=== PATIENT | male | born 1995 | race Caucasian/White ===

== ENCOUNTER → 2018-01-25 14:57 | Outpatient (CLI) | payer MEDICAID, SELFPAY ==
--- NOTE | 2018-01-25 14:57 | DT_ITS ---
This patient was seen during an EMR downtime January 25, 2018 - February 01, 2018. This patient may have a combination of paper and electronic documentation or all paper documentation. All documentation is viewable within the e-chart portion of [employer] for each patient visit.
[2018-01-29 21:37] LABS: Hematocrit 46.4 % (40-54); Hemoglobin 15.4 g/dl (13.0-16.5); Mean Corp Hgb Conc 33.2 g/gl (32-36); Mean Corpuscular Hgb 30.5 pg (27.0-32.0); Mean Corpuscular Volume 91.9 fL (80-94); Platelet Count 249 K/mm3 (150-450); RBC Distribution Width CV 12.5 % (11.6-14.6); RBC Distribution Width SD 41.6 fl (35.1-43.9); Red Blood Count 5.05 M/mm3 (4.6-6.2); White Blood Count 8.5 K/mm3 (4.4-11.0)
[2018-01-29 21:38] LABS: BUN 16 mg/dL (7-18); BUN/Creat Ratio 14.8 RATIO (10-20); Creatinine, Serum 1.08 mg/dL (0.70-1.30); EST Glomerular Filtration Rate 91 mL/min (>60); Est Glom Filt Rate - Afr Amer 110 mL/min (>60); Glucose 79 mg/dL (74-106); Scan Indicated on CBC? Y/N NO
[2018-01-29 21:39] LABS: AST(SGOT) 17 U/L (15-37); Alanine Aminotransfer ALT/SGPT 32 U/L (16-61); Albumin, Serum 4.1 g/dL (3.2-5.0); Alkaline Phosphatase 112 U/L (45-117); Calcium,Total 9.2 mg/dL (8.5-10.1); Chloride 104 mmol/L (98-107); Potassium 4.2 mmol/L (3.5-5.1); Sodium Level 141 mmol/L (136-145)
[2018-01-29 21:40] LABS: Anion Gap 9 (5-15); Thyroid Stim Hormone (TSH) 1.17 uIU/mL (0.358-3.74)
[2018-01-29 21:41] LABS: Valproic Acid (Depakene) Level 52 ug/mL (50-100)
[2018-01-29 21:42] LABS: Hemoglobin A1c 5.3 % (4.2-6.3)
[2018-01-30 10:56] LABS: Globulin 4.1 g/dL (2.2-4.2); Protein, Total 8.2 g/dL (6.4-8.2)
== END ==
PROVIDERS: Family Provider Family Medicine; PCP Family Medicine; Visit Provider Psychiatry & Neurology Psychiatry
DX: Z79.899 Other long term (current) drug therapy (principal)
CPT/HCPCS: 36415; 80053; 80164; 83036; 84443; 85027

== ENCOUNTER 2025-06-10 02:34 | Emergency (ER) | payer MEDICARE, MEDICAID, SELFPAY ==
[2025-06-10 02:35] VITALS: BP 156/81; PULSE 92; RESP 18; TEMP 36.4; O2SAT 100; BMI 35.0
--- NOTE | 2025-06-10 03:01 | EX.ED.UPPERE ---
HPI History of Present Illness Chief Complaint: Upper Extremity Injury Informant: patient Narrative Narrative: Patient is a 29-year-old male with past medical history of ADHD and schizophrenia. He states he was sleeping when he awoke and noticed that his left arm felt numb and tingly. He states that he is unsure if he could have been bitten by something or have an allergic reaction to the neighbors dog. He states there has been no recent trauma or excessive activity. He states that upon arrival to the ER the symptoms have spontaneously improved. He denied any other symptoms such as paresthesias or weakness in other extremities change in vision headache or slurred speech [facility] Medical History Tinea pedis Home Medications ?Medication ?Instructions ?Recorded ?Last Taken ?Type clonidine HCl 0.1 mg 0.1 mg PO QHS 05/29/25 Unknown History tablet,extended release,12 hr clotrimazole-betamethasone 1 1 applic topical BID 4 weeks #45 05/29/25 Unknown Rx %-0.05 % topical cream grams fluoxetine 10 mg capsule 10 mg PO QDAY 05/29/25 Unknown History lisdexamfetamine 50 mg capsule 50 mg PO QDAY 05/29/25 Unknown History loratadine 10 mg tablet 10 mg PO QDAY 05/29/25 Unknown History paliperidone 3 mg tablet,extended 3 mg PO QHS 05/29/25 Unknown History release 24 hr quetiapine 400 mg tablet 400 mg PO QHS 05/29/25 Unknown History Allergy/AdvReac Type Severity Reaction Status Date / Time Penicillins (PCN) Allergy Hives Verified 06/10/25 02:35 Social History (Updated 05/29/25 @ 16:16 by Vicki Adams MA) Smoking Status: Never smoker alcohol intake: never ROS ROS ED Constitutional Constitutional ED: Denies chills or fever(s) Eyes Eyes: Denies blurry vision or change in vision ENT ENT ED: Denies sore throat Cardiovascular Cardiovascular: Denies chest pain, palpitations or racing heartbeat Respiratory/Chest Respiratory/Chest: Denies cough or dyspnea Gastrointestinal Gastrointestinal: Denies abdominal pain, diarrhea, nausea or vomiting Musculoskeletal Musculoskeletal: Denies neck pain Integumentary Denies rash Neurologic Neurologic: Reports paresthesias; Denies headache(s) EXAM Physical Exam Const Vital Signs: 06/10/25 02:35 Temperature 97.5 F L Temperature Source Oral Pulse Rate 92 Respiratory Rate 18 Blood Pressure 156/81 H Blood Pressure Mean 106 Pulse Ox 100 Oxygen Delivery Method Room Air Positive well nourished and well developed General Appearance ED: well developed HEENT HEENT Narrative: Normocephalic atraumatic Eyes PERRL and EOMs intact bilaterally Neck full ROM and supple Neck Narrative: No bony deformity or step-off of the cervical spine No midline tenderness to palpation Negative Spurling sign bilaterally Resp normal respiratory effort and clear to auscultation bilaterally Cardio regular rate and regular rhythm Cardio Narrative: Heart is regular rate and rhythm without murmurs rubs or gallops Radial and carotid pulses are equal and symmetric GI non-tender, non-distended and no masses Auscultation: normoactive bowel sounds Palpation: soft Extremity normal to inspection and full ROM Extremity Narrative: Left upper extremity is neurovascularly intact; AIN/PIN are intact and normal. Negative Tinel's and Phalen sign. No bony deformity or joint effusion noted. All compartments are soft and compressible going against compartment syndrome. No signs of allergic reaction or trauma as there is no ecchymosis erythema or urticarial lesions noted Remainder of the exam is normal Neuro oriented x3, CN's II-XII intact bilaterally, moves all extremities, no focal motor deficits and no sensory deficits noted Sensorium / Orientation: alert Motor Exam: strength 5/5 throughout Psych mental status grossly normal Skin no rashes or lesions noted Skin Narrative: Capillary refill is less than 3 seconds [facility] MDM MDM Narrative Medical decision making narrative: Patient arrived to the ER mildly hypertensive but overall stable vitals. He reported he awoke with left hand/arm numbness tingling and folic it was slightly swollen. His physical exam does not suggest acute allergic reaction as there is no urticaria or erythema there is no sign of insect bite or sting. He does not show findings for arterial occlusion as the distal radial pulse is bounding and plus 2 out of 4 with capillary refill less than 3 seconds. He does not findings to suggest symptoms for compartment syndrome or from carpal tunnel/cubital tunnel. With negative Spurling sign he does not show changes concerning for cervical radiculopathy. His neurologic exam is normal as well going against any type of atypical TIA or CVA. I do feel the patient was most likely sleeping in an abnormal position which led to compression/neuropraxia. This would account for his symptoms as well as the spontaneous resolution upon arrival. Therefore without signs of neurologic issue compartment syndrome injury infection or allergic reaction I do not feel there is need for any type of intervention such as imaging or labs and he is otherwise safe for discharge History & Record Review Discussion w/independent historian: Patient Discharge Plan Triage Chief Complaint: Upper Extremity Injury ED Provider: Igor Gonsalez Dx/Rx/DC Orders Clinical Impression: Paresthesia, Neuropraxia of upper extremity, ADHD, Schizophrenia Instructions: ED Paresthesia Prescriptions: No Action fluoxetine 10 mg capsule 10 mg PO QDAY loratadine 10 mg tablet 10 mg PO QDAY quetiapine 400 mg tablet 400 mg PO QHS paliperidone 3 mg tablet extended release 24hr 3 mg PO QHS lisdexamfetamine 50 mg capsule 50 mg PO QDAY clotrimazole-betamethasone 1-0.05 % cream 1 applic topical BID 28 Days Qty: 45 0RF clonidine HCl 0.1 mg tablet extended release 12 hr 0.1 mg PO QHS Primary Care Provider: Parrish Marie Referrals: Parrish Marie MD [Primary Care Provider, [facility]] Activity Restrictions/Additional Instructions: Your history and exam is consistent with neuropraxia. This is essentially compression of the nerve structure which then leads to sensation of numbness tingling weakness. This most likely happened because you were sleeping in an abnormal position. It it will resolve spontaneously once your extremity is in a normal position. However it could take anywhere from a few minutes to a few hours. If symptoms happen again please make sure your arm is in a normal resting position and allow up to 1 hour for symptoms to resolve. Return to the ER should you have any further concerns Print Language: Albanian Disposition Disposition: Home, Self Care Discharge Date/Time: 06/10/25 03:17
--- OUTSIDE RECORDS SUMMARY | 2025-06-10 03:09 | XMS RPT_ITS | CCD ---
Author Organization [facility] Care Team Providers Care Drill Instructor Name Role Phone Amena Torres MD Primary Care Provider Amena Torres MD Primary Care Provider T[place]hof CORRECTIONAL SUPPLY SUPERVISOR.Shoshana HOWELL Unavailable Tannhof CORRECTIONAL SUPPLY SUPERVISOR.Shoshana HOWELL Unavailable Monty CORRECTIONAL SUPPLY SUPERVISOR.Janette HOWELL Unavailable Abshweta CISNEROS Stephen Primary Care Provider STEPHEN JOHNS Attending Unavailable ABUAITA, STEPHEN Primary Care Unavailable [place] CORRECTIONAL SUPPLY SUPERVISOR.Shoshana HOWELL Unavailable Dr. Amena Torres MD Primary Care Physician Dr. Amena Torres MD Referring Provider Sudeep Madrigal Attending Physician Amena Torres Referring Unavailable Amena Torres Primary Care Unavailable Sudeep Madrigal Attending Unavailable Allergies Allergy Classification Reported Allergen(s) Allergy Type Date of Onset Reaction(s) Facility (3 sources) Penicillins; Translations: [PENICILLINS] Propensity to adverse reactions 6 [facility] (14 sources) Penicillins Propensity to adverse reactions 6 [facility] (2 sources) Penicillins Propensity to adverse reactions 6 [facility] (1 source) Penicillins Allergy to substance 5 [facility] (1 source) Penicillins Drug allergy (disorder) 5 [facility] Repository Medications Current Medications Medication Drug Class(es) Dates Sig (Normalized) Sig (Original) acetaminophen 325 mg oral tablet (19 sources) Start: 07-08-2022 End: 03-15-2025 take 2 tablets by mouth every six hours as needed for pain and headache acetaminophen (TYLENOL) 325 mg tablet Indications: Acute frontal sinusitis, recurrence not specified , Acute serous otitis media of left ear, recurrence not specified Take 2 tablets by mouth every 6 hours as needed for pain. and headache 60 tablet 1 03/15/2025 Active Start: 05-21-2015 End: 05-29-2025 take 500-1000 mg by mouth every six hours as needed for pain Acetaminophen 500 MG tablet Discontinued 500 - 1000 mg PO EVERY 6 HOURS NEEDED as needed for Pain Or Fever 60 May 21, 2015 12:00am May 29, 2025 4:14pm Comment on above: Take 2 tablets by mo uth every 6 hours as needed for fever (specify). Take 2 tablets by mo uth every 6 hours as needed for pain. and headache betamethasone 0.5 mg/ml / clotrimazole 10 mg/ml topical cream (1 source) Azole Antifungal, Corticosteroid Start: 05-29-20 Clotrimazole-Betam ethasone 1-0.05 % cream Active 1 NMA TOPICAL TWICE A DAY 45 28 0 May 29, 2025 12:00am June 25, 2025 12:00am Complies with drug therapy 12 hr cloNIDine hydrochloride 0.1 mg extended release oral tablet (2 sources) Central alpha-2 Adrenergic Agonist Start: 02-24-20 End: 05-29-20 take 1 tablet by mouth every twelve hours at bedtime Clonidine Hcl 0.1 mg tablet extended release 12 hr Active 0.1 mg PO AT BEDTIME May 29, 2025 4:15pm Complies with drug therapy FLUoxetine 10 mg oral capsule (20 sources) Serotonin Reuptake Inhibitor Start: 05-29-20 take 1 capsule by mouth once daily Fluoxetine 10 mg capsule Active 10 mg PO daily May 29, 2025 12:00am Complies with drug therapy Start: 12-09-2024 take 1 capsule by mo uth once daily FLUoxetine (PROZAC) 10 mg capsule Take 10 mg by mouth once daily. 12/09/2024 Active Start: 12-04-2021 End: 12-27-2024 take 1 capsule by mouth once daily FLUoxetine HCl (PROZAC) 40 mg capsule Take 1 capsule by mouth once daily. 12/04/2021 12/27/2024 Discontinued Comment on above: Take 1 capsule by mo [facility] once daily. lisdexamfetamine dimesylate 50 mg oral capsule (3 sources) Central Nervous System Stimulant Start: 025 take 1 capsule by mouth once daily Lisdexamfetamine 50 mg capsule Active 50 mg PO daily 0 May 29, 2025 12:00am Complies with drug therapy Start: 12-08-2024 take 1 capsule by mo [facility] once daily lisdexamfetamine (VYVANSE) 50 mg capsule Take 50 mg by mouth once daily. 12/08/2024 Active loratadine 10 mg oral tablet (20 sources) Start: 05-29-2025 take 1 tablet by mouth once daily Loratadine 10 mg tablet Active 10 mg PO daily May 29, 2025 12:00am Complies with drug therapy Start: 07-28-2023 End: 08-08-2024 take 1 tablet by mouth once daily loratadine (CLARITIN) 10 mg tablet Take 1 tablet by mouth once daily. 31 tablet 11 08/08/2024 Active Start: 09-03-2021 End: 09-01-2022 take 1 tablet by mouth once daily loratadine (CLARITIN) 10 mg tablet Take 1 tablet by mouth once daily. 31 tablet 11 09/01/2022 Active Comment on above: Take 1 tablet by gennaro th once daily. 24 hr paliperidone 3 mg extended release oral tablet (3 sources) Atypical Antipsychotic Start: 05-29-20 take 1 tablet by mouth every twenty-four hours at bedtime Paliperidone 3 mg tablet extended release 24hr Active 3 mg PO AT BEDTIME May 29, 2025 12:00am Complies with drug therapy Start: 12-09-2024 paliperidone E R (INVEGA) 3 mg 24 hr tablet Take 3 mg by mouth. 12/09/2024 Active QUEtiapine 400 mg oral tablet (20 sources) Atypical Antipsychotic Start: 05-29-2025 take 1 tablet by mouth at bedtime Quetiapine 400 mg tablet Active 400 mg PO AT BEDTIME May 29, 2025 12:00am Complies with drug therapy Start: 11-22-2024 take 1 tablet by gennaro th once daily at bedtime QUEtiapine (SEROQUEL) 400 mg tablet Take 400 mg by mouth daily at bedtime. 11/22/2024 Active Start: 09-27-2015 End: 12-27-2024 take 1 tablet by mouth twice daily QUEtiapine (SEROQUEL) 50 mg tablet Take 1 tablet by mouth twice daily. 0 09/27/2015 12/27/2024 Discontinued Start: 02-23-2014 End: 05-29-2025 take 1 tablet by mouth at bedtime Quetiapine (Seroquel) 200 MG tablet Discontinued 200 mg PO AT BEDTIME February 23, 2014 12:00am May 29, 2025 4:15pm End: 12-27-2024 QUEtiapine (SEROQUEL) 300 mg tablet Indications: Developmental delay Take 400 mg by mouth daily at bedtime. 12/27/2024 Discontinued take 1 tablet by gennaro th once daily at bedtime QUEtiapine (SEROQUEL) 300 mg tablet Indications: Developmental delay Take 300 mg by mouth daily at bedtime. 0 Active Comment on above: Take 1 tablet by gennaro th twice daily. Take 300 mg by mouth daily at bedtime. Take 400 mg by mouth daily at bedtime. Completed/Discontinued Medications Medication Drug Class(es) Dates Sig (Normalized) Sig (Original) acetaminophen 325 mg / oxyCODONE hydrochloride 10 mg oral tablet (1 source) Opioid Agonist Start: 02-27-2014 End: 05-29-2025 Oxycodone-Acetamin ophen (Percocet 10-325 Mg Tablet) 1 EACH tablet Discontinued 1 {tbl} PO EVERY 4 HOURS NEEDED as needed for Pain 30 0 February 27, 2014 12:00am May 29, 2025 4:15pm amphetamine aspartate 1.25 mg / amphetamine sulfate 1.25 mg / dextroamphetamine saccharate 1.25 mg / dextroamphetamine sulfate 1.25 mg oral tablet (10 sources) Central Nervous System Stimulant Start: 12-18-2022 End: 12-27-2024 take 1 tablet by mouth once daily dextroamphetamine- amphetamine (ADDERALL) 5 mg tablet Take 1 tablet by mouth once daily. 0 12/18/2022 12/27/2024 Discontinued Comment on above: Take 1 tablet by gennaro th once daily. azelastine hydrochloride 0.137 mg/actuat metered dose nasal spray (4 sources) Histamine-1 Receptor Antagonist Start: 12-18-2022 End: 05-05-2023 take 2 spray(s) nasal route twice daily azelastine 0.1% nasal spray Indications: Seasonal allergic rhinitis due to pollen Use 2 Sprays in each nostril twice daily. 30 mL 11 12/18/2022 05/05/2023 Discontinued (Course of therapy completed) Comment on above: Use 2 Sprays in each nostril twice daily. benzocaine 15 mg / menthol 2.6 mg oral lozenge (1 source) Standardized Chemical Allergen Start: 05-21-2015 End: 05-29-2025 Benzocaine-Menthol (Cepacol Sore Throat Lozenge) 1 EACH lozenge Discontinued 1 NMA MM EVERY 2 HOURS NEEDED as needed for Sore Throat 30 0 May 21, 2015 7:26pm May 29, 2025 4:14pm cyproheptadine hydrochloride 4 mg oral tablet (1 source) Start: 02-23-2014 End: 05-29-2025 take 1 tablet by mouth three times daily Cyproheptadine 4 MG tablet Discontinued 4 mg PO THREE TIMES A DAY February 23, 2014 12:00am May 29, 2025 4:15pm fluticasone propionate 0.05 mg/actuat metered dose nasal spray (12 sources) Corticosteroid Start: 12-24-2020 End: 02-10-2023 take 2 spray(s) by mouth once daily fluticasone (FLONASE) 50 mcg/actuation nasal spray INSTILL 2 SPRAYS IN EACH NOSTRIL DAILY RINSE MOUTH AFTER USE *SHAKE GENTLY BEFORE USING* 16 g 11 01/06/2023 02/10/2023 Discontinued Comment on above: INSTILL 2 SPRAYS IN EACH NOSTRIL DAILY RINSE MOUTH AFTER USE *SHAKE GENTLY BEFORE USING* hydrOXYzine hydrochloride 25 mg oral tablet (7 sources) Antihistamine Start: 05-05-2023 End: 12-27-2024 take 1 tablet by mouth every hour hydrOXYzine HCl (ATARAX) 25 mg tablet Indications: Fear of flying Take 1 tablet by mouth 1 hour prior to flight. 6 tablet 05/05/2023 12/27/2024 Discontinued Comment on above: Take [address] [facility] 1 hour prior to flight. risperiDONE 1 mg oral tablet (17 sources) Atypical Antipsychotic Start: 08-22-2016 End: 12-27-2024 take 1 tablet by mouth twice daily risperiDONE (RISPERDAL) 1 mg tablet Take 1 tablet by mouth twice daily. 0 08/22/2016 12/27/2024 Discontinued Comment on above: Take 1 tablet by gennaro twice daily. sulfamethoxazole 800 mg / trimethoprim 160 mg oral tablet (1 source) Dihydrofolate Reductase Inhibitor Antibacterial, Sulfonamide Antimicrobial Start: 02-27-2014 End: 05-29-2025 Sulfamethoxazole-T rimethoprim 1 TABLET tablet Discontinued 1 {tbl} PO TWICE A DAY 14 0 February 27, 2014 12:00am May 29, 2025 4:15pm 24 hr traZODone hydrochloride 150 mg extended release oral tablet (1 source) Serotonin Reuptake Inhibitor Start: 02-23-2014 End: 05-29-2025 take 1 tablet by mouth once daily as needed Trazodone (Oleptro Er) 150 MG tablet extended release 24 hr Discontinued 150 mg PO DAILY as needed for Insomnia February 23, 2014 12:00am May 29, 2025 4:15pm divalproex sodium 250 mg delayed release oral tablet (17 sources) Mood Stabilizer, Anti-epileptic Agent End: 12-27-2024 take 1 tablet by mouth in the morning, then take 2 tablets by mouth at bedtime divalproex DR (DEPAKOTE) 250 mg EC tablet Take by mouth. Take one tablet in am and 2 tablets at bedtime. 12/27/2024 Discontinued Comment on above: Take by mouth. Take one tablet in am and 2 tablets at bedtime. 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] 05-05-2023 Chronic Attention-deficit, conduct, and disruptive behavior disorders (20 sources) Attention deficit hyperactivity disorder; Translations: [Attention-deficit hyperactivity disorder, unspecified type] Onset: 02-15-2006 Chronic Developmental disorders (18 sources) Developmental delay; Translations: [Other disorders of psychological development] Onset: 02-15-2006 02-15-2006 Chronic Disorders of lipid metabolism (2 sources) Mixed hyperlipidemia; Translations: [Mixed hyperlipidemia] Chronic Immunizations and screening for infectious disease (4 sources) Viral screening status; Translations: [Encounter for screening for other viral diseases] Onset: 12-27-2024 12-27-2024 Episodic Malaise and fatigue (1 source) Lethargy; Translations: [Other fatigue] 08-01-2023 Episodic Mycoses (2 sources) Tinea pedis; Translations: [Tinea pedis] 05-29-2025 Episodic Other aftercare (1 source) Drug therapy status; Translations: [Other mcc (current) drug therapy] 08-01-2023 Episodic Other congenital anomalies (18 sources) Chromosomal disorder; 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, unspecified] Onset: 04-30-2010 04-30-2010 Chronic Other endocrine disorders (18 sources) Delayed puberty; 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] Onset: 05-09-2009 05-09-2009 Chronic Other endocrine disorders (18 sources) Growth hormone deficiency; Translations: [Hypopituitarism] Onset: 10-01-2012 10-01-2012 Chronic Other injuries and conditions due to external causes (1 source) Injury of finger; Translations: [Unspecified injury of unspecified wrist, hand and finger(s), initial encounter] 01-16-2015 Episodic Other screening for suspected conditions (not mental disorders or infectious disease) (8 sources) Patient encounter status; Translations: [Encounter for screening for diabetes mellitus] Onset: 12-27-2024 12-27-2024 Episodic Other upper respiratory disease (1 source) Allergic rhinitis due to pollen; Translations: [Allergic rhinitis due to pollen] 10-14-2023 Chronic Other upper respiratory infections (5 sources) Acute frontal sinusitis; Translations: [Acute frontal sinusitis, unspecified] Episodic Otitis media and related conditions (5 sources) Acute serous otitis media of left ear; Translations: [Acute serous otitis media, left ear] Episodic Screening and history of mental health and substance abuse codes (2 sources) Encounter for screening for depression; Translations: [Encounter for screening examination for other mental health and behavioral disorders] Onset: 12-27-2024 Episodic Past or Other Problems Problem Classification Problem Date Documented Date Episodic/Chronic E Codes: Natural/environment (3 sources) Insect bite - wound; Translations: [Bitten or stung by nonvenomous insect and other nonvenomous arthropods, initial encounter] Onset: 06-17-2010 Resolved: 07-09-2011 07-09-2011 Episodic Other inflammatory condition of skin (3 sources) Seborrheic dermatitis; Translations: [Other seborrheic dermatitis] Onset: 06-17-2010 Resolved: 07-09-2011 07-09-2011 Episodic Other inflammatory condition of skin (3 sources) Pruritus, unspecified; Translations: [Unspecified pruritic disorder] Onset: 06-17-2010 Resolved: 07-09-2011 07-09-2011 Episodic Other injuries and conditions due to external causes (3 sources) Excoriation of skin; Translations: [Other injury of unspecified body region, initial encounter] Onset: 06-17-2010 Resolved: 07-09-2011 07-09-2011 Episodic Other nutritional; endocrine; and metabolic disorders (20 sources) Developmental delay; Translations: [Unspecified lack of expected normal physiological development in childhood] Onset: 09-28-2015 Episodic Other nutritional; endocrine; and metabolic disorders (18 sources) General finding of height; Translations: [Short stature (child)] Onset: 05-09-2009 05-09-2009 Episodic Other skin disorders (3 sources) Folliculitis; Translations: [Follicular disorder, unspecified] Onset: 06-17-2010 Resolved: 07-09-2011 07-09-2011 Episodic Skin and subcutaneous tissue infections (3 sources) Pyoderma gangrenosum; Translations: [Pyoderma gangrenosum] Onset: 06-17-2010 Resolved: 07-09-2011 07-09-2011 Episodic Results Test Name Value Interpretation Reference Range Facility Urgent Care Visit Reporton 1 Urgent Care Visit Report [facility] [address], [address] [place] [address] OFFICE VISIT Date of Service: 05/29/25 MR#: [id number] Acct: [id number] Name: JOE AC Rep #: [id number] : 1995 Provider: ROMA Navarrete Age/Sex: 29/M Location: [facility] Status: Signed Intake Vital Signs 05/29/25 16:00 05/29/25 16:22 Height 5 ft 6 in 5 ft 8.5 in Weight: 223 lb BMI 33.4 BP 124/84 H Position Sitting Respiration 18 Pulse 84 Temp 98.7 F Temp Source Oral Pulse Oximetry (%) 97 Oxygen Delivery Method room air Intake Visit Reasons: ITCHY FEET Accompanied by: Caregiver Allergies Penicillins (PCN) Allergy (Verified 05/29/25 16:14) Hives Nurse's Note: Patient has itchy toes that started last night. Patient states that his Right foot between his 2-3 toe is red and itchy, Patient left foot between toe 3-4 is itchy and red. [facility] Medical History (Updated 05/29/25 @ 17:17 by ROMA Lerma) Tinea pedis Social History (Updated 05/29/25 @ 16:16 by Vicki Adams MA) Smoking Status: Never smoker alcohol intake: never HPI HPI Details: JOE AC, is a 29 M who presents to the office today for several day history of bilateral pruritic skin between toes with skin peeling and fissuring appreciated by patient. Unknown ideology as patient has never had such symptoms in the past he so states. No [id number] topical products been tried to assist. No other associated symptoms and no other alleviating/aggravatin g factors. ROS Const Constitutional: No other (As above) Exam Const General: cooperative, healthy appearing and no acute distress Nutritional Appearance: average body habitus Orientation: alert and awake Resp Effort Inspection: normal respiratory effort and able to speak in complete sentences Cardio Rate: regular rate Pulses: radial pulses present Skin General: no rashes or lesions noted Other: Except skin peeling and fissuring between several toes of both feet Neuro General: patient alert and patient awake Cognition: normal cognition Speech: speech normal Extrem General: normal to inspection (Except as described in skin exam above) Psych Appearance: grossly normal Mental Status: mental status grossly normal Mood: congruent mood Affect: normal affect Speech and Movement: speech and movement normal Attitude: cooperative Coding Level of Care Code Off vis,new,level 3 Diagnoses Tinea pedis B35.3 Assessment and Plan Assessment and Plan (1) Tinea pedis: Status: Acute Plan: Clotrimazole/betametha sone cream as prescribed today. Appropriate skin care measures as instructed today. Follow-up with PCP or podiatry or dermatology in 10 to 14 days should symptoms not improve, sooner should symptoms only worsen or any other concerns develop. 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 This note was generated with Vocentation software. It may contain incorrect words, spelling, and punctuation that were not noted in checking the note before signing. Medications: New clotrimazole-betametha sone 1-0.05 % 1 applic topical BID 45 grams 0RF 4 weeks Discontinued oxycodone-acetaminophe n 10-325 mg (Percocet) Discontinued Reason: Pt no longer taking 1 TAB PO Q4H PRN PRN 30 tabs 0RF Pain sulfamethoxazole-trime thoprim 800-160 mg Discontinued Reason: Pt no longer taking 1 TAB PO BID 14 TABLETS 0RF benzocaine-menthol 15-2.6 mg (Cepacol Sore Throat (benzocaine-menthol)) Discontinued Reason: Pt no longer taking 1 ea MM Q2H PRN PRN 30 matt 0RF Sore Throat acetaminophen Discontinued Reason: Pt no longer taking 500 - 1,000 mg (1 - 2 x 500 mg) PO Q6H PRN PRN 60 tabs Pain Or Fever 05/29/25 [id number] Date Sudeep Morgan Signature: Date (if applicable) CC: [facility] 05-18-2025 [facility] Telephone (4CQ) JOE AC ([id number]) 1995 M Date Time Provider Department 05/18/25 STEPHEN JOHNS 4CQ During your visit today, we recorded the following information about you: Maxine Gomes 05/18/2025 11:25 AM Signed [place] [employer] paperwork mailed to patient address. Paperwork was in accordion file. Maxine Em May 18, 2025 11:25 AM Allergies As of Date: 05/18/2025 Noted Allergy Reaction PENICILLINS 05/07/2006 4 - Hives Comments: rash Date Reviewed: 12/27/2024 Reviewed by: Toya Winston LPN - Fully Assessed Prescriptions as of 05/18/2025 - acetaminophen (TYLENOL) 325 mg tablet Take 2 tablets by mouth every 6 hours as needed for pain. and headache - lisdexamfetamine (VYVANSE) 50 mg capsule Take 50 mg by mouth once daily. - paliperidone ER (INVEGA) 3 mg 24 hr tablet Take 3 mg by mouth. - FLUoxetine (PROZAC) 10 mg capsule Take 10 mg by mouth once daily. - QUEtiapine (SEROQUEL) 400 mg tablet Take 400 mg by mouth daily at bedtime. - loratadine (CLARITIN) 10 mg tablet Take 1 tablet by mouth once daily. 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] 04/30/2010 Folliculitis [L73.9] 06/17/2010 07/09/2011 Insect bites [W57.XXXA] 06/17/2010 07/09/2011 Other seborrheic dermatitis [L21.8] 06/17/2010 07/09/2011 Pruritus [L29.9] 06/17/2010 07/09/2011 Excoriation [T14.8XXA] 06/17/2010 07/09/2011 Pyoderma gangrenosum [L88] 06/17/2010 07/09/2011 Growth hormone deficiency [E23.0] 10/01/2012 Developmental delay [R62.50] 09/28/2015 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] 09/28/2015 Encounter Status:Closed by MAXINE GOMES on 05/18/[address] [facility] CNOVon 12-27-2024 CNOV Office Visit (FAMLAK ) JOE AC ([id number]) 1995 Date Time Provider Department 12/27/24 2:40 PM STEPHEN JOHNS During your visit today, we recorded the following information about you: Temperature Pulse Respiration Blood pressure 98.4 degrees 87/minute 20/minute 130/82 Weight Height 86.3 kg 1.746 m Stephen Johns DO 12/27/2024 3:40 PM Signed ASSESSMENT AND PLAN: Problem List Items Addressed This Visit None Visit Diagnoses Encounter for well adult exam without abnormal findings - Primary Screening for depression Relevant Orders DEPRESSION SCREENING Encounter for screening examination for other mental health and behavioral disorders Relevant Orders ANXIETY SCREENING Special screening examination for viral disease Relevant Orders HEPATITIS C ANTIBODY IA WITH CONFIRMATION Encounter for immunization Relevant Orders TDAP PRINTED PHARMACY INSTRUCTIONS Screening for diabetes mellitus Relevant Orders COMPREHENSIVE METABOLIC PANEL HEMOGLOBIN A1C Screening for lipid disorders Relevant Orders LIPID PANEL, FASTING Screening for endocrine disorder Relevant Orders COMPLETE BLOOD COUNT TSH W/REFLEX FT4 Discussed BP goal <130/80. Encouraged diet rich in vegetables and 150 minutes of moderate intensity activity weekly. Encouraged regular dental visits. Encouraged regular seatbelt use. Encouraged safe sex practices. Reviewed age and season appropriate vaccines. Reviewed cancer screening recommendations. Questions and concerns addressed in office. Medications were reviewed and verified. AVS provided. 10/15/2023 12/27/2024 INTAKE PAIN ASSESSMENT Are you having pain associated with your visit today? No No If pain assessment is 0, no action needed. If pain assessment is positive, please see assessment and plain. FOLLOW UP: Return in about 1 year (around 12/27/2025) for CPE. SUBJECTIVE: Joe Ac is a 29 year old male presenting in the office today. CC: Patient presents with: Establish Care: Pt presents today to establish care. Living in long-term in [place] with 2 roommates. Moving back to [place] in [place] soon and will be living on his own. We are seeing [facility] psychiatry who is managing medications. Mom has HTN Diet: generally healthy- eats fast food on weekends. Cooks at home and has staff who helps. Needs to work on vegetables-like peas, green peas. Likes apples. Does a lot of mountain dew, pops. Exercise: sometimes goes on walks and does yard work. Dental Exam: greater than a year ago Does not want to see dentist- had bad experience Eye Exam: annually- seeing one this week Seatbelt Use: regular Cancer Screening Colon: NA. No immediate family history of colon cancer. Normal Bms. Lung: NA. Not a smoker Prostate: NA. DEXA: NA. AA: NA. Immunization Influenza: NA Pneumococcal: NA SARS-CoV 2: Declined. Risks and benefits of vaccination discussed in office. Tdap/Td: Due. Patient to seek vaccination through local pharmacy. Zoster: NA PHYSICAL EXAMINATION: BP 130/82 Pulse 87 Temp 98.4 Resp 20 Ht 5' 8.75 (1.75m) Wt 190 lb 3.2 oz (86.3kg) SpO2 95% BMI 28.30 kg/(m2). Physical Exam Vitals reviewed. Constitutional: General: He is not in acute distress. Appearance: Normal appearance. HENT: Head: Normocephalic and atraumatic. Right Ear: Tympanic membrane, ear canal and external ear normal. There is no impacted cerumen. Left Ear: Tympanic membrane, ear canal and external ear normal. There is no impacted cerumen. Mouth/Throat: Mouth: Mucous membranes are moist. Pharynx: Oropharynx is clear. No oropharyngeal exudate or posterior oropharyngeal erythema. Comments: Poor oral dentition Eyes: Pupils: Pupils are equal, round, and reactive to light. Cardiovascular: Rate and Rhythm: Normal rate and regular rhythm. Heart sounds: Normal heart sounds. No murmur heard. Pulmonary: Effort: Pulmonary effort is normal. No respiratory distress. Breath sounds: Normal breath sounds. No wheezing. Lymphadenopathy: Cervical: No cervical adenopathy. Neurological: Mental Status: He is alert and oriented to person, place, and time. Psychiatric: Mood and Affect: Mood normal. Behavior: Behavior normal. Stephen Johns DO 12/27/2024 3:30 PM Addendum Continue to take all medication as prescribed,. Keep up coming appointment with Psychiatry Continue to eat well balanced diet and stay active Due for eye and dental exam this year Get tetanus vaccine at pharmacy like [facility] Allergies As of Date: 12/27/2024 Noted Allergy Reaction PENICILLINS 05/07/2006 4 - Hives Comments: rash Date Reviewed: 12/27/2024 Reviewed by: Toya Winston LPN - Fully Assessed Reason for Visit: Establish Care [42] Cmt: Pt presents today to establish care. Primary Visit Diagnosis:Encounter for well adult exam without abn (more content not included)... Normal [facility] CNCOon 10-17-2024 CNCO Letter Text Normal [facility] Ammoniaon 10-09-2021 Ammonia (P) [Moles/Vol] 38 umol/L Normal 16-60 [facility] Comment on above: Performed By: #### N H3, CBCDIF, TSH, CMP, LIPB, VPA #### [facility] [address] [place], [place] [address] CBC and Differentialon 10-09 Abs Baso 0.04 k/uL Normal <0.11 [facility] Comment on above: Performed By: #### N H3, CBCDIF, TSH, CMP, LIPB, VPA #### [facility] [address] [place], [place] [address] Abs [place] 0.52 k/uL Normal <0.87 [facility] Comment on above: Performed By: #### N H3, CBCDIF, TSH, CMP, LIPB, VPA #### [facility] [address] [place], [place] [address] Abs Neut 3.67 k/uL Normal 1.45-7.50 [facility] Comment on above: Performed By: #### N H3, CBCDIF, TSH, CMP, LIPB, VPA #### [facility] [address] [place], [place] [address] Absolute nRBC <0.01 Normal <0.01 [facility] Comment on above: Performed By: #### N H3, CBCDIF, TSH, CMP, LIPB, VPA #### [facility] [address] [place] [phone] Basophils/100 WBC (Bld) 0.6 % Normal [facility] Comment on above: Performed By: #### N H3, CBCDIF, TSH, CMP, LIPB, VPA #### [facility] [address] [place] [phone] DTYPE ADIFF Normal [facility] Comment on above: Performed By: #### N H3, CBCDIF, TSH, CMP, LIPB, VPA #### [facility] [address] [place], [place] [address] Eosinophils (Bld) [#/Vol] 0.13 10*3/uL Normal <0.46 [facility] Comment on above: Performed By: #### N H3, CBCDIF, TSH, CMP, LIPB, VPA #### [facility] [address] [place] [phone] Eosinophils/100 WBC (Bld) 2.0 % Normal [facility] Comment on above: Performed By: #### N H3, CBCDIF, TSH, CMP, LIPB, VPA #### [facility] [address] [place], [place] [phone] Erythrocyte distribution width (RBC) [Ratio] 12.7 % Normal 11.5-15.0 [facility] Comment on above: Performed By: #### N H3, CBCDIF, TSH, CMP, LIPB, VPA #### [facility] [address] [place] [phone] Hematocrit (Bld) [Volume fraction] 47.2 % Normal 39.0-51.0 [facility] Comment on above: Performed By: #### N H3, CBCDIF, TSH, CMP, LIPB, VPA #### [facility] [address] [place], [place] [phone] Hemoglobin (Bld) [Mass/Vol] 15.2 g/dL Normal 13.0-17.0 [facility] Comment on above: Performed By: #### N H3, CBCDIF, TSH, CMP, LIPB, VPA #### [facility] [address] [place], [place] [address] Lymphocytes (Bld) [#/Vol] 2.26 10*3/uL Normal 1.00-4.00 [facility] Comment on above: Performed By: #### N H3, CBCDIF, TSH, CMP, LIPB, VPA #### [facility] Rout[facility] [place] [address] Lymphocytes/100 WBC (Bld) 34.1 % Normal [facility] Comment on above: Performed By: #### N H3, CBCDIF, TSH, CMP, LIPB, VPA #### [facility] [address] [place] [address] MCH 30.4 pG Normal 26.0-34.0 [facility] Comment on above: Performed By: #### N H3, CBCDIF, TSH, CMP, LIPB, VPA #### [facility] [address] [place] [address] MCHC (RBC) [Mass/Vol] 32.2 g/dL Normal 30.5-36.0 [facility] Comment on above: Performed By: #### N H3, CBCDIF, TSH, CMP, LIPB, VPA #### [facility] [address] [place] [address] MCV (RBC) [Entitic vol] 94.4 fL Normal 80.0-100.0 [facility] Comment on above: Performed By: #### N H3, CBCDIF, TSH, CMP, LIPB, VPA #### [facility] [address] [place] [address] Monocytes/100 WBC (Bld) 7.9 % Normal [facility] Comment on above: Performed By: #### N H3, CBCDIF, TSH, CMP, LIPB, VPA #### [facility] [address] [place], [place] [address] Neutrophils/100 WBC (Bld) 55.4 % Normal [facility] Comment on above: Performed By: #### N H3, CBCDIF, TSH, CMP, LIPB, VPA #### [facility] [address] [place], [place] [address] NRBCs 0.0 /100 WBC Normal 0 [facility] Comment on above: Performed By: #### N H3, CBCDIF, TSH, CMP, LIPB, VPA #### [facility] [address] [place], [place] [address] Platelet mean volume (Bld) [Entitic vol] 11.8 fL Normal 9.0-12.7 [facility] Comment on above: Performed By: #### N H3, CBCDIF, TSH, CMP, LIPB, VPA #### [facility] [address] [place], [place] [address] Platelets (Bld) [#/Vol] 245 10*3/uL Normal 150-400 [facility] Comment on above: Performed By: #### N H3, CBCDIF, TSH, CMP, LIPB, VPA #### [facility] [address] [place], [place] [address] RBC (Bld) [#/Vol] 5.00 10*6/uL Normal 4.20-6.00 [facility] Reference Lab Comment on above: Performed By: #### N H3, CBCDIF, TSH, CMP, LIPB, VPA #### [facility] [address] [place], [place] [address] WBC (Bld) [#/Vol] 6.62 10*3/uL Normal 3.70-11.00 [facility] Reference Lab Comment on above: Performed By: #### N H3, CBCDIF, TSH, CMP, LIPB, VPA #### [facility] [address] [place], [place] [address] Comp Metabolic Panelon 10-09 Albumin [Mass/Vol] 4.6 g/dL Normal 3.9-4.9 [facility] Reference Lab Comment on above: Performed By: #### N H3, CBCDIF, TSH, CMP, LIPB, VPA #### [facility] [address] [place], [place] [address] ALP [Catalytic activity/Vol] 93 U/L Normal 38-113 [facility] Comment on above: Performed By: #### N H3, CBCDIF, TSH, CMP, LIPB, VPA #### [facility] [address] [place] [address] ALT [Catalytic activity/Vol] 38 U/L Normal 10-54 [facility] Comment on above: Performed By: #### N H3, CBCDIF, TSH, CMP, LIPB, VPA #### [facility] [address] [place], [place] [address] Anion gap [Moles/Vol] 10 mmol/L Normal 9-18 [facility] Comment on above: Performed By: #### N H3, CBCDIF, TSH, CMP, LIPB, VPA #### [facility] [address] [place], [place] [address] AST [Catalytic activity/Vol] 29 U/L Normal 14-40 [facility] Comment on above: Performed By: #### N H3, CBCDIF, TSH, CMP, LIPB, VPA #### [facility] [address] [place], [place] [address] Bilirubin [Mass/Vol] 0.2 mg/dL Normal 0.2-1.3 [facility] Reference Lab Comment on above: Performed By: #### N H3, CBCDIF, TSH, CMP, LIPB, VPA #### [facility] [address] [place] [address] Calcium [Mass/Vol] 9.6 mg/dL Normal 8.5-10.2 [facility] Reference Lab Comment on above: Performed By: #### N H3, CBCDIF, TSH, CMP, LIPB, VPA #### [facility] [address] [place] [address] Chloride [Moles/Vol] 99 mmol/L Normal 97-105 [facility] Lab Comment on above: Performed By: #### N H3, CBCDIF, TSH, CMP, LIPB, VPA #### [facility] [address] [place] [address] CO2 [Moles/Vol] 29 mmol/L Normal 22-30 [facility] Comment on above: Performed By: #### N H3, CBCDIF, TSH, CMP, LIPB, VPA #### [facility] [address] [place] [address] Creatinine [Mass/Vol] 0.93 mg/dL Normal 0.73-1.22 [facility] Comment on above: Performed By: #### N H3, CBCDIF, TSH, CMP, LIPB, VPA #### [facility] [address] [place] [address] eGFR- Amer. >60 Normal [facility] Reference Lab Comment on above: Performed By: #### N H3, CBCDIF, TSH, CMP, LIPB, VPA #### [facility] [address] [place] [address] eGFR-All Other Races >60 Normal [facility] Reference Lab Comment on above: Performed By: #### N H3, CBCDIF, TSH, CMP, LIPB, VPA #### [facility] [address] [place] [address] Glucose [Mass/Vol] 79 mg/dL Normal 74-99 [facility] Lab Comment on above: Performed By: #### N H3, CBCDIF, TSH, CMP, LIPB, VPA #### [facility] [address] [place], [place] [address] Potassium [Moles/Vol] 4.4 mmol/L Normal 3.7-5.1 [facility] Comment on above: Performed By: #### N H3, CBCDIF, TSH, CMP, LIPB, VPA #### [facility] [address] [place], [place] [address] Protein [Mass/Vol] 7.6 g/dL Normal 6.3-8.0 [facility] Lab Comment on above: Performed By: #### N H3, CBCDIF, TSH, CMP, LIPB, VPA #### [facility] [address] [place], [place] [address] Sodium [Moles/Vol] 138 mmol/L Normal 136-144 [facility] Lab Comment on above: Performed By: #### N H3, CBCDIF, TSH, CMP, LIPB, VPA #### [facility] [address] [place], [place] [address] Urea nitrogen [Mass/Vol] 11 mg/dL Normal 9-24 [facility] Comment on above: Performed By: #### N H3, CBCDIF, TSH, CMP, LIPB, VPA #### [facility] [address] [place], [place] [address] Lipid Panel, Bas[place] 022 Cholesterol [Mass/Vol] 274 mg/dL High <200 [facility] Comment on above: Performed By: #### N H3, CBCDIF, TSH, CMP, LIPB, VPA #### [facility] [address] [place], [place] [address] Cholesterol in HDL [Mass/Vol] 32 mg/dL Low >39 [facility] Comment on above: Performed By: #### N H3, CBCDIF, TSH, CMP, LIPB, VPA #### [facility] [address] [place] [address] Cholesterol in LDL [Mass/Vol] 179 mg/dL High <100 [facility] Comment on above: Performed By: #### N H3, CBCDIF, TSH, CMP, LIPB, VPA #### [facility] [address] [place] [address] Cholesterol in VLDL [Mass/Vol] 63 mg/dL High <30 [facility] Comment on above: Performed By: #### N H3, CBCDIF, TSH, CMP, LIPB, VPA #### [facility] [address] [place] [phone] Cholesterol non HDL [Mass/Vol] 242 mg/dL High <130 [facility] Comment on above: Performed By: #### N H3, CBCDIF, TSH, CMP, LIPB, VPA #### [facility] [address] [place] [phone] LDL:HDL Ratio 5.59 High <2.54 [facility] Comment on above: Performed By: #### N H3, CBCDIF, TSH, CMP, LIPB, VPA #### [facility] [address] [place] [phone] TC:HDL Ratio 8.56 High <5.10 [facility] Comment on above: Performed By: #### N H3, CBCDIF, TSH, CMP, LIPB, VPA #### [facility] [address] [place] [phone] Triglyceride [Mass/Vol] 313 mg/dL High <150 [facility] Comment on above: Performed By: #### N H3, CBCDIF, TSH, CMP, LIPB, VPA #### [facility] [address] [place] [address] TSHon 10-09-2021 TSH Qn 2.210 m[IU]/L Normal 0.270-4.200 [facility] Comment on above: Performed By: #### N H3, CBCDIF, TSH, CMP, LIPB, VPA #### [facility] [address] [place] [address] Valproic Acidon 10-09-2021 Valproic Acid 56.8 ug/mL Normal 50-100 [facility] Comment on above: Performed By: #### N H3, CBCDIF, TSH, CMP, LIPB, VPA #### [facility] [address] [place] [address] Lipid Panel, Basicon 022 Fasting Time UN Normal [facility] Comment on above: Performed By: #### N H3, CBCDIF, TSH, CMP, LIPB, VPA #### [facility] [address] [place] [address] CBC and Differentialon 11-28 Abs Baso 0.04 k/uL Normal <0.11 [facility] Comment on above: Performed By: #### C MP, CBCDIF, VPA #### [facility] [address] [place] [address] Abs [place] 0.65 k/uL Normal <0.87 [facility] Comment on above: Performed By: #### C MP, CBCDIF, VPA #### [facility] [address] [place] [address] Abs Neut 2.22 k/uL Normal 1.45-7.50 [facility] Comment on above: Performed By: #### C MP, CBCDIF, VPA #### [facility] [address] [place] [address] Absolute nRBC <0.01 Normal <0.01 [facility] Comment on above: Performed By: #### C MP, CBCDIF, VPA #### [facility] [address] [place], [place] [address] Basophils/100 WBC (Bld) 0.8 % Normal [facility] Comment on above: Performed By: #### C MP, CBCDIF, VPA #### [facility] [address] [place] [address] DTYPE ADIFF Normal [facility] Comment on above: Performed By: #### C MP, CBCDIF, VPA #### [facility] [address] [place] [address] Eosinophils (Bld) [#/Vol] 0.14 10*3/uL Normal <0.46 [facility] Comment on above: Performed By: #### C MP, CBCDIF, VPA #### [facility] [address] [place] [address] Eosinophils/100 WBC (Bld) 2.7 % Normal [facility] Comment on above: Performed By: #### C MP, CBCDIF, VPA #### [facility] [address] [place] [phone] Erythrocyte distribution width (RBC) [Ratio] 12.4 % Normal 11.5-15.0 [facility] Comment on above: Performed By: #### C MP, CBCDIF, VPA #### [facility] [address] [place] [address] Hematocrit (Bld) [Volume fraction] 46.7 % Normal 39.0-51.0 [facility] Comment on above: Performed By: #### C MP, CBCDIF, VPA #### [facility] [address] [place] [address] Hemoglobin (Bld) [Mass/Vol] 14.5 g/dL Normal 13.0-17.0 [facility] Comment on above: Performed By: #### C MP, CBCDIF, VPA #### [facility] [address] [place], [place] [address] Lymphocytes (Bld) [#/Vol] 2.12 10*3/uL Normal 1.00-4.00 [facility] Comment on above: Performed By: #### C MP, CBCDIF, VPA #### [facility] [address] [place], [place] [address] Lymphocytes/100 WBC (Bld) 41.0 % Normal [facility] Comment on above: Performed By: #### C MP, CBCDIF, VPA #### [facility] [address] [place], [place] [address] MCH 30.0 pG Normal 26.0-34.0 [facility] Comment on above: Performed By: #### C MP, CBCDIF, VPA #### [facility] [address] [place], [place] [address] MCHC (RBC) [Mass/Vol] 31.0 g/dL Normal 30.5-36.0 [facility] Comment on above: Performed By: #### C MP, CBCDIF, VPA #### [facility] [address] [place], [place] [address] MCV (RBC) [Entitic vol] 96.7 fL Normal 80.0-100.0 [facility] Comment on above: Performed By: #### C MP, CBCDIF, VPA #### [facility] [address] [place], [place] [address] Monocytes/100 WBC (Bld) 12.6 % Normal [facility] Comment on above: Performed By: #### C MP, CBCDIF, VPA #### [facility] [address] [place], [place] [address] Neutrophils/100 WBC (Bld) 42.9 % Normal [facility] Comment on above: Performed By: #### C MP, CBCDIF, VPA #### [facility] [address] [place], [place] [address] NRBCs 0.0 /100 WBC Normal 0 [facility] Comment on above: Performed By: #### C MP, CBCDIF, VPA #### [facility] [address] [place], [place] [address] Platelet mean volume (Bld) [Entitic vol] 12.0 fL Normal 9.0-12.7 [facility] Comment on above: Performed By: #### C MP, CBCDIF, VPA #### [facility] [address] [place], [place] [address] Platelets (Bld) [#/Vol] 233 10*3/uL Normal 150-400 [facility] Comment on above: Performed By: #### C MP, CBCDIF, VPA #### [facility] [address] [place], [place] [address] RBC (Bld) [#/Vol] 4.83 10*6/uL Normal 4.20-6.00 [facility] Reference Lab Comment on above: Performed By: #### C MP, CBCDIF, VPA #### [facility] [address] [place], [place] [address] WBC (Bld) [#/Vol] 5.17 10*3/uL Normal 3.70-11.00 [facility] Lab Comment on above: Performed By: #### C MP, CBCDIF, VPA #### [facility] [address] [place], [place] [address] Comp Metabolic Panelon 11-28 Albumin [Mass/Vol] 4.5 g/dL Normal 3.9-4.9 [facility] Reference Lab Comment on above: Performed By: #### C MP, CBCDIF, VPA #### [facility] [address] [place], [place] [address] ALP [Catalytic activity/Vol] 89 U/L Normal 38-113 [facility] Comment on above: Performed By: #### C MP, CBCDIF, VPA #### [facility] [address] [place], [place] [address] ALT [Catalytic activity/Vol] 44 U/L Normal 10-54 [facility] Comment on above: Performed By: #### C MP, CBCDIF, VPA #### [facility] [address] [place], [place] [address] Anion gap [Moles/Vol] 9 mmol/L Normal 9-18 [facility] Comment on above: Performed By: #### C MP, CBCDIF, VPA #### [facility] [address] [place], [place] [address] AST [Catalytic activity/Vol] 42 U/L High 14-40 [facility] Comment on above: Performed By: #### C MP, CBCDIF, VPA #### [facility] [address] [place], [place] [address] Bilirubin [Mass/Vol] 0.3 mg/dL Normal 0.2-1.3 [facility] Reference Lab Comment on above: Performed By: #### C MP, CBCDIF, VPA #### [facility] [address] [place], [place] [address] Calcium [Mass/Vol] 9.5 mg/dL Normal 8.5-10.2 [facility] Reference Lab Comment on above: Performed By: #### C MP, CBCDIF, VPA #### [facility] [address] [place], [place] [address] Chloride [Moles/Vol] 102 mmol/L Normal 97-105 [facility] Reference Lab Comment on above: Performed By: #### C MP, CBCDIF, VPA #### [facility] [address] [place], [place] [address] CO2 [Moles/Vol] 27 mmol/L Normal 22-30 [facility] Comment on above: Performed By: #### C MP, CBCDIF, VPA #### [facility] [address] [place], [place] [address] Creatinine [Mass/Vol] 1.03 mg/dL Normal 0.73-1.22 [facility] Comment on above: Performed By: #### C MP, CBCDIF, VPA #### [facility] [address] [place], [place] [address] eGFR- Amer. >60 Normal [facility] Reference Lab Comment on above: Performed By: #### C MP, CBCDIF, VPA #### [facility] [address] [place], [place] [address] eGFR-All Other Races >60 Normal [facility] Reference Lab Comment on above: Performed By: #### C MP, CBCDIF, VPA #### [facility] [address] [place], [place] [address] Glucose [Mass/Vol] 86 mg/dL Normal 74-99 [facility] Reference Lab Comment on above: Performed By: #### C MP, CBCDIF, VPA #### [facility] [address] [place], [place] [address] Potassium [Moles/Vol] 4.7 mmol/L Normal 3.7-5.1 [facility] Comment on above: Performed By: #### C MP, CBCDIF, VPA #### [facility] [address] [place], [place] [address] Protein [Mass/Vol] 7.4 g/dL Normal 6.3-8.0 [facility] Reference Lab Comment on above: Performed By: #### C MP, CBCDIF, VPA #### [facility] [address] [place], [place] [address] Sodium [Moles/Vol] 138 mmol/L Normal 136-144 [facility] Lab Comment on above: Performed By: #### C MP, CBCDIF, VPA #### [facility] [address] [place] [address] Urea nitrogen [Mass/Vol] 14 mg/dL Normal 9-24 [facility] Comment on above: Performed By: #### C MP, CBCDIF, VPA #### [facility] [address] [place] [address] Valproic Acidon 11-28-2020 Valproic Acid 75.0 ug/mL Normal 50-100 [facility] Comment on above: Performed By: #### C MP, CBCDIF, VPA #### [facility] [address] [place] [address] Valproic Acidon 08-11-2019 Valproic Acid 61.5 ug/mL Normal 50-100 [facility] Comment on above: Performed By: #### V PA #### [facility] [address] [place] [address] Comp Metabolic Panelon 01-04 Albumin [Mass/Vol] 4.6 g/dL Normal 3.9-4.9 [facility] Reference Lab Comment on above: Performed By: #### C BCDIF, VPA, CMP, PROL #### [facility] [address] [place] [address] ALP [Catalytic activity/Vol] 85 U/L Normal 38-113 [facility] Comment on above: Performed By: #### C BCDIF, VPA, CMP, PROL #### [facility] [address] [place] [address] ALT [Catalytic activity/Vol] 26 U/L Normal 10-54 [facility] Comment on above: Performed By: #### C BCDIF, VPA, CMP, PROL #### [facility] [address] [place] [address] Anion gap [Moles/Vol] 14 mmol/L Normal 9-18 [facility] Reference Lab Comment on above: Performed By: #### C BCDIF, VPA, CMP, PROL #### [facility] Routine Lab [address], [place] [address] AST [Catalytic activity/Vol] 28 U/L Normal 14-40 [facility] Reference [facility] Comment on above: Performed By: #### C BCDIF, VPA, CMP, PROL #### [facility] Routine Lab [address], [place] [address] Bilirubin Ql (U) 0.2 mg/dL Normal 0.2-1.3 [facility] Reference Lab Comment on above: Performed By: #### C BCDIF, VPA, CMP, PROL #### [facility] Routine Lab [address], [place] [address] Calcium [Mass/Vol] 9.3 mg/dL Normal 8.5-10.2 [facility] Reference Lab Comment on above: Performed By: #### C BCDIF, VPA, CMP, PROL #### [facility] Routine Lab [address], [place] [address] Chloride [Moles/Vol] 103 mmol/L Normal 97-105 [facility] Reference Lab Comment on above: Performed By: #### C BCDIF, VPA, CMP, PROL #### [facility] Routine Lab [address], [place] [address] CO2 [Moles/Vol] 24 mmol/L Normal 22-30 [facility] Reference Lab Comment on above: Performed By: #### C BCDIF, VPA, CMP, PROL #### [facility] Routine Lab [address], [place] [address] Creatinine [Mass/Vol] 1.02 mg/dL Normal 0.73-1.22 [facility] Reference Lab Comment on above: Performed By: #### C BCDIF, VPA, CMP, PROL #### [facility] Routine Lab [address], [place] [address] eGFR- Amer. >60 Normal [facility] Reference Lab Comment on above: Performed By: #### C BCDIF, VPA, CMP, PROL #### [facility] Routine Lab [address], [place] [address] GFR/1.73 sq M predicted among non-blacks MDRD (S/P/Bld) [Vol rate/Area] mL/min/{1.73_m2} Normal [facility] Reference Lab Comment on above: Performed By: #### C BCDIF, VPA, CMP, PROL #### [facility] Routine Lab [address], [place] [address] Glucose [Mass/Vol] 85 mg/dL Normal 74-99 [facility] Reference Lab Comment on above: Performed By: #### C BCDIF, VPA, CMP, PROL #### [facility] Routine Lab [address], [place] [address] Potassium [Moles/Vol] 4.3 mmol/L Normal 3.7-5.1 [facility] Reference Lab Comment on above: Performed By: #### C BCDIF, VPA, CMP, PROL #### [facility] Routine Lab [address], [place] [address] Protein [Mass/Vol] 7.4 g/dL Normal 6.3-8.0 [facility] Reference Lab Comment on above: Performed By: #### C BCDIF, VPA, CMP, PROL #### [facility] Routine Lab [address], [place] [address] Sodium [Moles/Vol] 141 mmol/L Normal 136-144 [facility] Reference Lab Comment on above: Performed By: #### C BCDIF, VPA, CMP, PROL #### [facility] Routine Lab [address], [place] [address] Urea nitrogen [Mass/Vol] 14 mg/dL Normal 9-24 [facility] Reference Lab Comment on above: Performed By: #### C BCDIF, VPA, CMP, PROL #### [facility] Routine Lab [address] [place] [address] Prolactinon 01-04-2019 Prolactin 52.4 ng/mL High 4.0-15.2 [facility] Reference Lab Comment on above: Performed By: #### C BCDIF, VPA, CMP, PROL #### [facility] Routine Lab [address] [place] [address] CBC and Differentialon 01-03 Abs Baso 0.06 k/uL Normal <0.11 [facility] Reference Lab Comment on above: Performed By: #### C BCDIF, VPA, CMP, PROL #### [facility] Routine Lab [address] [place] [address] Abs [place] 0.71 k/uL Normal <0.87 [facility] Reference Lab Comment on above: Performed By: #### C BCDIF, VPA, CMP, PROL #### [facility] Routine Lab [address], [place] [address] Abs Neut 3.90 k/uL Normal 1.45-7.50 [facility] Reference Lab Comment on above: Performed By: #### C BCDIF, VPA, CMP, PROL #### [facility] Routine Lab [address], [place] [address] Absolute nRBC <0.01 Normal <0.01 [facility] Reference Lab Comment on above: Performed By: #### C BCDIF, VPA, CMP, PROL #### [facility] Routine Lab [address], [place] [address] Basophils/100 WBC (Bld) 0.9 % Normal [facility] Reference Lab Comment on above: Performed By: #### C BCDIF, VPA, CMP, PROL #### [facility] Routine Lab [address] [place], [place] [address] DTYPE ADIFF Normal [facility] Reference Lab Comment on above: Performed By: #### C BCDIF, VPA, CMP, PROL #### [facility] Routine Lab [address] [place] [address] Eosinophils (Bld) [#/Vol] 0.30 10*3/uL Normal <0.46 [facility] Reference Lab Comment on above: Performed By: #### C BCDIF, VPA, CMP, PROL #### [facility] Routine Lab [address] [place] [phone] Eosinophils/100 WBC (Bld) 4.3 % Normal [facility] Reference Lab Comment on above: Performed By: #### C BCDIF, VPA, CMP, PROL #### [facility] Routine Lab [address] [place] [phone] Erythrocyte distribution width (RBC) [Ratio] 12.3 % Normal 11.5-15.0 [facility] Reference Lab Comment on above: Performed By: #### C BCDIF, VPA, CMP, PROL #### [facility] Routine Lab [address] [place] [address] Hematocrit (Bld) [Volume fraction] 47.6 % Normal 39.0-51.0 [facility] Reference Lab Comment on above: Performed By: #### C BCDIF, VPA, CMP, PROL #### [facility] Routine Lab [address] [place] [address] Hemoglobin (Bld) [Mass/Vol] 15.6 g/dL Normal 13.0-17.0 [facility] Reference [facility] Comment on above: Performed By: #### C BCDIF, VPA, CMP, PROL #### [facility] Routine Lab [address] [place] [address] Lymphocytes (Bld) [#/Vol] 2.08 10*3/uL Normal 1.00-4.00 [facility] Reference Lab Comment on above: Performed By: #### C BCDIF, VPA, CMP, PROL #### [facility] Routine Lab [address] [place] [address] Lymphocytes/100 WBC (Bld) 29.5 % Normal [facility] Reference Lab Comment on above: Performed By: #### C BCDIF, VPA, CMP, PROL #### [facility] Routine Lab [address] [place], [place] [address] MCH (RBC) [Entitic mass] 30.7 pG Normal 26.0-34.0 [facility] Reference Lab Comment on above: Performed By: #### C BCDIF, VPA, CMP, PROL #### [facility] Routine Lab [address] [place] [address] MCHC (RBC) [Mass/Vol] 32.8 g/dL Normal 30.5-36.0 [facility] Reference [facility] Comment on above: Performed By: #### C BCDIF, VPA, CMP, PROL #### [facility] Routine Lab [address] [place] [address] MCV (RBC) [Entitic vol] 93.7 fL Normal 80.0-100.0 [facility] Reference Lab Comment on above: Performed By: #### C BCDIF, VPA, CMP, PROL #### [facility] Routine Lab [address], [place] [address] Monocytes/100 WBC (Bld) 10.1 % Normal [facility] Reference Lab Comment on above: Performed By: #### C BCDIF, VPA, CMP, PROL #### [facility] Routine Lab [address] [place], [place] [address] Neutrophils/100 WBC (Bld) 55.2 % Normal [facility] Reference Lab Comment on above: Performed By: #### C BCDIF, VPA, CMP, PROL #### [facility] Routine Lab [address] [place], [place] [address] NRBCs 0.0 /100 WBC Normal 0 [facility] Reference Lab Comment on above: Performed By: #### C BCDIF, VPA, CMP, PROL #### [facility] Routine Lab [address] [place], [place] [address] Platelet mean volume (Bld) [Entitic vol] 12.1 fL Normal 9.0-12.7 [facility] Reference [facility] Comment on above: Performed By: #### C BCDIF, VPA, CMP, PROL #### [facility] Routine Lab [address] [place], [place] [address] Platelets (Bld) [#/Vol] 221 10*3/uL Normal 150-400 [facility] Reference Lab Comment on above: Performed By: #### C BCDIF, VPA, CMP, PROL #### [facility] Routine Lab [address] [place] [address] RBC (Bld) [#/Vol] 5.08 10*6/uL Normal 4.20-6.00 [facility] Reference Lab Comment on above: Performed By: #### C BCDIF, VPA, CMP, PROL #### [facility] Routine Lab [address] [place] [address] WBC (Bld) [#/Vol] 7.05 10*3/uL Normal 3.70-11.00 [facility] Reference Lab Comment on above: Performed By: #### C BCDIF, VPA, CMP, PROL #### [facility] Routine Lab [address] [place] [phone] Valproic Acidon 01-03-2019 Valproic Acid 60.4 ug/mL Normal 50-100 [facility] Reference Lab Comment on above: Performed By: #### C BCDIF, VPA, CMP, PROL #### [facility] Routine Lab [address] [place] [phone] Vital Signs Date Time Vital Sign Value Performing Clinician Jhon elena 05-29-2025 16:22-0400 Body height 173.[address] Amena Torres MD Work Phone: [facility] 05-29-2025 16:22-0400 Body mass index (BMI) [Ratio] 33.4 kg/m2 Dr. Amena Torres MD Work Phone: [facility] 05-29-2025 16:22-0400 Body temperature 98.7 [degF] Dr. Amena Torres MD Work Phone: [facility] 05-29-2025 16:22-0400 Body weight 101.[address] Amena Torres MD Work Phone: [facility] 05-29-2025 16:22-0400 Diastolic blood pressure 84 mm[Hg] Dr. Amena Torres MD Work Phone: [facility] 05-29-2025 16:22-0400 Heart rate 84 /min Dr. Amena Torres MD Work Phone: [facility] 05-29-2025 16:22-0400 Respiratory rate 18 /min Dr. Amena Torres MD Work Phone: [facility] 05-29-2025 16:22-0400 SaO2% (BldA) [Mass fraction] 97 % Dr. Amena Torres MD Work Phone: [facility] 05-29-2025 16:22-0400 Systolic blood pressure 124 mm[Hg] Dr. Amena Torres MD Work Phone: [facility] 12-27-2024 14:49-0400 Body height 174.6 cm Stephen Abuaita DO Work Phone: [facility] 12-27-2024 14:49-0400 Body mass index (BMI) [Ratio] 28.29 kg/m2 Stephen Abuaita DO Work Phone: [facility] 12-27-2024 14:49-0400 Body temperature 98.4 [degF] Stephen Abuaita DO Work Phone: [facility] 12-27-2024 14:49-0400 Body weight 86.27 kg Stephen Abuaita DO Work Phone: [facility] 12-27-2024 14:49-0400 Diastolic blood pressure 82 mm[Hg] Stephen Abuaita DO Work Phone: [facility] 12-27-2024 14:49-0400 Heart rate 87 /min Stephen Abuaita DO Work Phone: [facility] 12-27-2024 14:49-0400 Respiratory rate 20 /min Stephen Abuaita DO Work Phone: [facility] 12-27-2024 14:49-0400 SaO2% (BldA) [Mass fraction] 95 % Stephen Abuaita DO Work Phone: [facility] 12-27-2024 14:49-0400 Systolic blood pressure 130 mm[Hg] Stephen Abuaita DO Work Phone: [facility] 10-15-2023 14:17-0500 Body height 173.5 cm Shoshana Morleyhof CORRECTIONAL SUPPLY SUPERVISOR.RETAIL ADVERTISING EXECUTIVE Work Phone: [facility] 10-15-2023 14:17-0500 Body weight 84.82 kg Shoshana Tannhof CORRECTIONAL SUPPLY SUPERVISOR.RETAIL ADVERTISING EXECUTIVE Work Phone: [facility] 10-15-2023 14:17-0500 Diastolic blood pressure 86 mm[Hg] Shoshana Tannhof CORRECTIONAL SUPPLY SUPERVISOR.RETAIL ADVERTISING EXECUTIVE Work Phone: [facility] 10-15-2023 14:17-0500 Heart rate 79 /min Shoshana Tannhof CORRECTIONAL SUPPLY SUPERVISOR.RETAIL ADVERTISING EXECUTIVE Work Phone: [facility] 10-15-2023 14:17-0500 Respiratory rate 16 /min Shoshana Tannhof CORRECTIONAL SUPPLY SUPERVISOR.RETAIL ADVERTISING EXECUTIVE Work Phone: [facility] 10-15-2023 14:17-0500 SaO2% (BldA) [Mass fraction] 97 % Shoshana Tannhof CORRECTIONAL SUPPLY SUPERVISOR.RETAIL ADVERTISING EXECUTIVE Work Phone: [facility] 10-15-2023 14:17-0500 Systolic blood pressure 130 mm[Hg] Shoshana Tannhof CORRECTIONAL SUPPLY SUPERVISOR.RETAIL ADVERTISING EXECUTIVE Work Phone: [facility] 12-04-2021 11:56-0400 Body height 172.7 cm Amena Torres MD Work Phone: [facility] 12-04-2021 11:56-0400 Body weight 107.5 kg Amena Torres MD Work Phone: [facility] 12-04-2021 11:56-0400 Diastolic blood pressure 88 mm[Hg] Amena Torres MD Work Phone: [facility] 12-04-2021 11:56-0400 Heart rate 78 /min Amena Torres MD Work Phone: [facility] 12-04-2021 11:56-0400 Respiratory rate 18 /min Amena Torres MD Work Phone: [facility] 12-04-2021 11:56-0400 Systolic blood pressure 128 mm[Hg] Amena Torres MD Work Phone: [facility] Encounters Encounter Date Encounter Type Care Provider Facility Start: 05-29-2025 End: 05-29-2025 Patient encounter procedure Sudeep Rowland MD [facility] Work Phone: Start: 05-29-2025 End: 05-29-[address] Amena Torres MD Work Phone: [facility] Start: 03-15-2025 End: 03-15-2025 Refill Janette Urena APRN.CNP Work Phone: [facility] Comment on above: Refill Request Start: 12-27-2024 End: 12-27-2024 Patient encounter status Stephen Johns DO Work Phone: [facility] Work Phone: Start: 12-27-2024 End: 12-27-2024 Periodic preventive med est patient 18-39 yrs Stephen Johns DO Work Phone: [facility] Comment on above: Encounter for well a dult exam without abnormal findings (Primary Dx); Screening for depression; Encounter for screening examination for other mental health and behavioral disorders; Special screening examination for viral disease; Encounter for immunization; Screening for diabetes mellitus; Screening for lipid disorders; Screening for endocrine disorder Start: 12-27-2024 End: 12-27-2024 ambulatory STEPHEN JOHNS Facility:[id number] Start: 12-27-2024 Encounter for genera l adult medical examination without abnormal findings [facility] Start: 08-08-2024 End: 08-08-2024 Refill Amena Torres MD Work Phone: [facility] [place] Comment on above: Refill Request Start: 10-15-2023 End: 10-15-2023 Patient encounter procedure Shoshana Manzano APRN.RETAIL ADVERTISING EXECUTIVE Work Phone: [facility] [place] Comment on above: Wellness examination (Primary Dx); Developmental delay; Attention deficit hyperactivity disorder (ADHD), unspecified ADHD type; Mixed hyperlipidemia; Seasonal allergic rhinitis due to pollen Start: 10-15-2023 End: 10-15-2023 Patient encounter status Shoshana Manzano APRN.RETAIL ADVERTISING EXECUTIVE Work Phone: [facility] Work Phone: Start: 2023 Telephone encounter Amena bobo MD Work Phone: [facility] [place] Comment on above: Orders Start: 08-01-2023 End: 08-01-2023 Nursing evaluation of patient and report Nurse [facility] Work Phone: [facility] Comment on above: On angiotensin concierge receptionist tor blockers (ARB) (Primary Dx); Lethargic infant Start: 07-20-2023 Refill Amena stewart MD Work Phone: [facility] [place] Comment on above: Refill Request Start: 05-04-2023 Telephone encounter Amena bobo MD Work Phone: [facility] [place] Comment on above: Patient Question Start: 02-10-2023 Telephone encounter Amena bobo MD Work Phone: [facility] [place] Comment on above: Medication Problem ( Changed nasal spray) Start: 01-06-2023 Refill Amena stewart MD Work Phone: [facility] [place] Comment on above: Refill Request Start: 01-01-2023 Telephone encounter Amena bobo MD Work Phone: [facility] Comment on above: Results Start: 09-01-2022 Refill Amena stewart MD Work Phone: [facility] [place] Comment on above: Refill Request Start: 07-08-2022 Refill Amena stewart MD Work Phone: [facility] [place] Comment on above: Refill Request pharmacy asking for change in rx directions Start: 07-08-2022 Refill Akira AL RN.RETAIL ADVERTISING EXECUTIVE, DNP Work Phone: [facility] [place] Comment on above: Refill Request Start: 03-31-2022 Telephone encounter Amena bobo MD Work Phone: [facility] [place] Comment on above: Letter Start: 01-01-2022 Refill Amena stewart MD Work Phone: [facility] Comment on above: Refill Request Start: 12-04-2021 End: 12-04-2021 Patient encounter procedure Amena Torres MD Work Phone: [facility] Comment on above: Well adult exam (Jessica maye Dx); Developmental delay; Attention deficit hyperactivity disorder (ADHD), unspecified ADHD type; Mixed hyperlipidemia Start: 12-04-2021 End: 12-04-2021 Patient encounter status Amena Torres MD Work Phone: [facility] Procedures Date Procedure Procedure Detail Performing Clinician Start: 12-27-2024 Adult depression screening assessment Stephen Johns DO Work Phone: Start: 10-15-2023 Adult depression screening assessment Amena Torres MD Work Phone: Start: 12-04-2021 Adult depression screening assessment Amena Torres MD Work Phone: Plan of Treatment Date Care Activity Detail Author Start: 12-27-2025 Anxiety Screening Anxiety Screening [facility] Start: 12-27-2025 Depression Screening Depression Scre ening [facility] Start: 04-24-2025 Influenza vaccination C [facility] Start: 01-15-2025 Urine microalbumin profile [facility] Start: 12-27-2024 End: 03-28-2025 CBC panel - Blood by Automated count COMPLETE BLOOD COUNT Lab Routine Screening for endocrine disorder Expected: 12/27/2024, Expires: 03/28/2025 [facility] Comment on above: Expected: 12/27/2024 , Expires: 03/28/2025 Start: 12-27-2024 End: 03-28-2025 Comprehensive metabolic 2000 panel - Serum or Plasma COMPREHENSIVE METABOLIC PANEL Lab Routine Screening for diabetes mellitus Expected: 12/27/2024, Expires: 03/28/2025 [facility] Comment on above: Expected: 12/27/2024 , Expires: 03/28/2025 Start: 12-27-2024 End: 03-28-2025 Hemoglobin A1c in Blood HEMOGLOBIN A1C Lab Routine Screening for diabetes mellitus Expected: 12/27/2024, Expires: 03/28/2025 [facility] Comment on above: Expected: 12/27/2024 , Expires: 03/28/2025 Start: 12-27-2024 End: 03-28-2025 Hepatitis C virus Ab [Presence] in Serum HEPATITIS C ANTIBODY IA WITH CONFIRMATION Lab Routine Special screening examination for viral disease Expected: 12/27/2024, Expires: 03/28/2025 [facility] Work Phone: Comment on above: Expected: 12/27/2024 , Expires: 03/28/2025 Start: 12-27-2024 End: 03-28-2025 Lipid 1996 panel - Serum or Plasma LIPID PANEL, FASTING Lab Routine Screening for lipid disorders Expected: 12/27/2024, Expires: 03/28/2025 [facility] Comment on above: Expected: 12/27/2024 , Expires: 03/28/2025 Start: 12-27-2024 End: 03-28-2025 TSH W/REFLEX FT4 TSH W/REFLEX FT4 Lab Routine Screening for endocrine disorder Expected: 12/27/2024, Expires: 03/28/2025 [facility] Comment on above: Expected: 12/27/2024 , Expires: 03/28/2025 Start: 10-17-2024 End: 10-17-2024 Patient encounter procedure 10/17/2024 5:00 PM EST Office [facility] [address] [place] [address] Amena Torres MD [address] [place], [place] [id number] [facility] Comment on above: Physical Start: 10-15-2024 Anxiety Screening Anxiety Screening [facility] Start: 10-15-2024 Covid-19 Vaccine () Covid-19 Vaccine () [facility] Comment on above: Postponed from 04/24 (Declined at this time) Start: 10-15-2024 Depression Screening Depression Scre ening [facility] Start: 10-15-2024 Hepatitis B Vaccine (4 of 4 - 4-dose series) Hepatitis B Vaccine (4 of 4 - 4-dose series) [facility] Comment on above: Postponed from 02/28 (Declined at this time) Start: 10-15-2024 HPV Vaccine (3 - Mal e 3-dose series) HPV Vaccine (3 - Male 3-dose series) [facility] Comment on above: Postponed from 08/28 (Declined at this time) Start: 04-24-2024 Covid-19 Vaccine () Covid-19 Vaccine () [facility] Start: 04-24-2024 Influenza vaccination Influenza Vacc ine (#1) [facility] Start: 02-21-2024 Influenza vaccination Influenza Vacc ine (#1) [facility] Comment on above: Postponed from 04/24 (Declined at this time) Start: 12-19-2023 HEPATITIS C SCREENING HEPATITIS C [facility] Comment on above: Postponed from 08/31 (Declined at this time) Start: 12-19-2023 Hepatitis C screening Hepatitis C [facility] Comment on above: Postponed from 08/31 (Declined at this time) Start: 12-19-2023 HIV SCREENING HIV SCREENING [facility] Comment on above: Postponed from 08/31 (Declined at this time) Start: 12-19-2023 HIV screening HIV Screening [facility] Comment on above: Postponed from 08/31 (Declined at this time) Start: 08-24-2023 Depression Assessment Depression Ass essment [facility] Start: 08-01-2023 End: 08-01-2024 ECG COMPLETE ECG COMPLETE ECG Routine On angiotensin receptor blockers (ARB) Lethargic Expected: 08/01/2023, Expires: 08/01/2024 [facility] Work Phone: Comment on above: Expected: 08/01/2023 , Expires: 08/01/2024 Start: 06-24-2023 Medicare Annual Well ness Visit Medicare Annual Wellness Visit [facility] Start: 04-24-2023 Covid-19 Vaccine () Covid-19 Vaccine () [facility] Start: 04-24-2023 Influenza vaccination [facility] Start: 12-04-2022 Adult depression screening assessment DEPRESSION SCREENING [facility] Start: 08-24-2022 DEPRESSION ASSESSMENT DEPRESSION ASS ESSMENT [facility] Start: 04-24-2022 Influenza vaccination C [facility] Start: 09-02-2021 COVID-19 VACCINE (4 - Booster for Moderna series) COVID-19 VACCINE (4 - Booster for Moderna series) [facility] Start: 09-02-2021 Covid-19 Vaccine (4 - Moderna series) Covid-19 Vaccine (4 - Moderna series) [facility] Start: 08-24-2021 [facility] Start: 08-28-2014 HPV VACCINE (3 - Mal e 3-dose series) HPV VACCINE (3 - Male 3-dose series) [facility] Start: 2013 HEPATITIS C SCREENING HEPATITIS C [facility] Start: 2013 Hepatitis C screening Hepatitis C [facility] Start: 2013 HIV SCREENING HIV SCREENING [facility] Start: 2013 HIV screening HIV Screening [facility] Start: 2009 PEDS TO ADULT TRANSI TION ANNUAL ASSESSMENT PEDS TO ADULT TRANSITION ANNUAL ASSESSMENT [facility] Start: 2007 PEDS TO ADULT TRANSI TION INITIAL DISCUSSION PEDS TO ADULT TRANSITION INITIAL DISCUSSION [facility] Start: 02-29-1996 HEPATITIS B (4 of 4 - 4-dose series) HEPATITIS B (4 of 4 - 4-dose series) [facility] Start: 02-29-1996 Hepatitis B Vaccine (4 of 4 - 4-dose series) Hepatitis B Vaccine (4 of 4 - 4-dose series) [facility] Immunizations Immunization Date Immunization Notes Care Provider Fa gianfranco 07-08-2021 COVID-19 original vaccine, full dose, monovalent (MODERNA) Amena Torres MD Work Phone: [facility] 09-19-2020 COVID-19 vaccine, fu ll dose (MODERNA) Amena Torres MD Work Phone: [facility] Work Phone: 08-22-2020 COVID-19 vaccine, fu ll dose (MODERNA) Amena Torres MD Work Phone: [facility] Work Phone: 05-10-2020 influenza, injectabl e, quadrivalent, preservative free Amena Torres MD Work Phone: [facility] Work Phone: 05-10-2020 influenza virus vaccine, unspecified formulation Amena Torres MD Work Phone: [facility] 09-23-2019 influenza, injectabl e, quadrivalent, contains preservative Amena Torres MD Work Phone: [facility] 06-05-2018 influenza, injectabl e, quadrivalent, contains preservative Amena Torres MD Work Phone: [facility] 05-12-2017 influenza, injectabl e, quadrivalent, contains preservative Amena Torres MD Work Phone: [facility] 07-13-2015 influenza, injectabl e, quadrivalent, contains preservative Amena Torres MD Work Phone: [facility] Work Phone: 07-13-2015 influenza, seasonal, injectable Amena Torres MD Work Phone: [facility] Work Phone: 01-15-2015 tetanus toxoid, reduced diphtheria toxoid, and acellular pertussis vaccine, adsorbed Amena Torres MD Work Phone: [facility] Work Phone: 07-04-2014 influenza, injectabl e, quadrivalent, preservative free Amena Torres MD Work Phone: [facility] Work Phone: 07-04-2014 influenza, seasonal, injectable Amena Torres MD Work Phone: [facility] 04-28-2014 human papilloma viru s vaccine, quadrivalent Amena Torres MD Work Phone: [facility] 04-28-2014 tuberculin skin test ; purified protein derivative solution, intradermal Amena Torres MD Work Phone: [facility] 06-30-2013 influenza virus vaccine, live, attenuated, for intranasal use Amena Torres MD Work Phone: [facility] 04-20-2013 human papilloma viru s vaccine, quadrivalent Amena Torres MD Work Phone: [facility] 04-20-2013 Meningococcal, MCV4, unspecified conjugate formulation(groups A, C, Y and W-135) Amena Torres MD Work Phone: [facility] 04-20-2013 tuberculin skin test ; purified protein derivative solution, intradermal Amena Torres MD Work Phone: [facility] 07-09-2011 influenza virus vaccine, unspecified formulation Amena Torres MD Work Phone: [facility] 07-09-2011 varicella virus vaccine Amena Torres MD Work Phone: [facility] 07-05-2007 influenza virus vaccine, unspecified formulation Amena Torres MD Work Phone: [facility] Work Phone: 01-21-2007 Meningococcal, MCV4, unspecified conjugate formulation(groups A, C, Y and W-135) Amena Torres MD Work Phone: [facility] Work Phone: 01-21-2007 tetanus toxoid, reduced diphtheria toxoid, and acellular pertussis vaccine, adsorbed Amena Torres MD Work Phone: [facility] Work Phone: 03-03-2000 varicella virus vaccine Amena Torres MD Work Phone: [facility] Work Phone: 09-02-1999 diphtheria, tetanus toxoids and acellular pertussis vaccine Amena Torres MD Work Phone: [facility] Work Phone: 09-02-1999 measles, mumps and rubella virus vaccine Amena Torres MD Work Phone: [facility] Work Phone: 09-02-1999 poliovirus vaccine, inactivated Amena Torres MD Work Phone: [facility] Work Phone: 11-29-1996 diphtheria, tetanus toxoids and acellular pertussis vaccine Amena Torres MD Work Phone: [facility] Work Phone: 11-29-1996 haemophilus influenz ae type b vaccine, HbOC conjugate Amena Torres MD Work Phone: [facility] Work Phone: 09-07-1996 measles, mumps and rubella virus vaccine Amena Torres MD Work Phone: [facility] Work Phone: 09-07-1996 trivalent poliovirus vaccine, live, oral Amena Torres MD Work Phone: [facility] Work Phone: 03-02-1996 diphtheria, tetanus toxoids and acellular pertussis vaccine Amena Torres MD Work Phone: [facility] Work Phone: 03-02-1996 haemophilus influenz ae type b vaccine, HbOC conjugate Amena Torres MD Work Phone: [facility] Work Phone: 1995 diphtheria, tetanus toxoids and acellular pertussis vaccine Amena Torres MD Work Phone: [facility] Work Phone: 1995 haemophilus influenz ae type b vaccine, HbOC conjugate Amena Torres MD Work Phone: [facility] Work Phone: 1995 hepatitis B vaccine, pediatric or pediatric/adolescent dosage Amena Torres MD Work Phone: [facility] Work Phone: 1995 trivalent poliovirus vaccine, live, oral Amena Torres MD Work Phone: [facility] Work Phone: 1995 hepatitis B vaccine, unspecified formulation Amena Torres MD Work Phone: [facility] 1995 diphtheria, tetanus toxoids and acellular pertussis vaccine Amena Torres MD Work Phone: [facility] Work Phone: 1995 haemophilus influenz ae type b vaccine, HbOC conjugate Amena Torres MD Work Phone: [facility] Work Phone: 1995 hepatitis B vaccine, pediatric or pediatric/adolescent dosage Amena Torres MD Work Phone: [facility] Work Phone: 1995 trivalent poliovirus vaccine, live, oral Amena Torres MD Work Phone: [facility] Work Phone: 1995 hepatitis B vaccine, pediatric or pediatric/adolescent dosage Amena Torres MD Work Phone: [facility] Work Phone: Payers Date Payer Category Payer Medicare [id number] 2025 Self-pay 2023 Medicare MEDICARE [id number] 2023 Medicare [id number] 2016 Medicaid MEDICAID [facility] MEDICAID [id number] 2016-Present [phone] [address] [place] [address] Medicaid [id number] 2016 Medicaid [id number] 2014 Medicaid [id number] Unknown [id number] Social History Date Type Detail Facility Start: 03-15-2018 End: 05-29-2025 Tobacco smoking status NHIS Never smoked tobacco [facility] Start: 03-15-2018 End: 12-18-2022 Tobacco use and exposure Smokeless tobacco non-user [facility] Start: 12-04-2021 End: 12-27-2024 Alcohol intake Current non-drinker of alcohol (finding) [facility] Start: 1995 Sex Assigned At Male [facility] Work Phone: Start: 11-24-2021 End: 12-04-2021 Exposure to SARS-CoV-2 (event) Not sure [facility] Start: 12-18-2022 Tobacco Comment foster father smokes outside [facility] Start: 12-18-2022 End: 10-15-2023 History of Social function [facility] Work Phone: Start: 12-18-2022 End: 10-15-2023 Tobacco use panel [facility] Work Phone: Adult Depression Screening Assessment 0 [facility] Work Phone: Start: 11-30-2020 Gender identity Identifies as male gender (finding) [facility] Work Phone: Has the [employer], or [employer] threatened to shut off services in your home in past 12Mo No [facility] Do you belong to any clubs or organizations such as tenriism groups, unions, fraternal or athletic groups, or school groups? Yes [facility] Are you now , , , , never or living with a partner? Never [facility] How often to you hav e a drink containing alcohol? Monthly or less [facility] How many standard dr inks containing alcohol do you have on a typical day? 1 or 2 [facility] How often do you hav e 6 or more drinks on 1 occasion? Never [facility] How hard is it for y ou to pay for the very basics like food, housing, medical care, and heating Not very hard [facility] Do you feel stress - tense, restless, nervous, or anxious, or unable to sleep at night because your mind is troubled all the time - these days [OSQ] Not at all [facility] (I/We) worried whetom er (my/our) food would run out before (I/we) got money to buy more. Never true [facility] Functional Status Date Assessment Result Facility 12-27-2024 Total score [AUDIT-C] 1 12/28/19 25 2:58 PM Toya Grigsby LPN [facility] 12-27-2024 Humiliation, Afraid, Rape, and Kick questionnaire [HARK] [facility] 10-17-2014 Are you deaf, or do you have serious difficulty hearing No 10/17/2014 10:43 AM Erika Prince LPN No [facility] 10-17-2014 Are you blind, or do you have serious difficulty seeing, even when wearing glasses No 10/17/2014 10:43 AM Erika Prince LPN No [facility] 10-17-2014 Do you have serious difficulty walking or climbing stairs No 10/17/2014 10:43 AM Erika Prince LPN No [facility] 10-17-2014 Do you have difficul ty dressing or bathing No 10/17/2014 10:43 AM Erika Prince LPN No [facility] 10-17-2014 Because of a physica l, mental, or emotional condition, do you have difficulty doing errands alone such as visiting a physician's office or shopping No 10/17/2014 10:43 AM Erika Prince LPN No [facility] Mental Status Date Assessment Result Facility 10-17-2014 Because of a physica l, mental, or emotional condition, do you have serious difficulty concentrating, remembering, or making decisions No 10/17/2014 10:43 AM Erika Prince LPN No [facility] Clinical Notes 06-17-2010 to 05-29-2025 Note Date & Type Note Facility 05-29-2025 Progress note [facility] 05-29-2025 Progress note Note Date/Time May 29, 2025 4:43pm [facility] [address], [address] [place] [address] OFFICE VISIT Date of Service: 05/29/25 MR#: [id number] Acct: [id number] Name: JOE AC DARIN Rep #: [id number] : 1995 Provider: ROMA Navarrete Age/Sex: 29/M Location: [facility] Status: Signed Intake Vital Signs 05/29/25 16:00 05/29/25 16:22 Height 5 ft 6 in 5 ft 8.5 in Weight: 223 lb BMI 33.4 BP 124/84 H Position Sitting Respiration 18 Pulse 84 Temp 98.7 F Temp Source Oral Pulse Oximetry (%) 97 Oxygen Delivery Method room air Intake Visit Reasons: ITCHY FEET Accompanied by: Caregiver Allergies Penicillins (PCN) Allergy (Verified 05/29/25 16:14) Hives Nurse's Note: Patient has itchy toes that started last night. Patient states that his Right foot between his 2-3 toe is red and itchy, Patient left foot between toe 3-4 is itchy and red. [facility] Medical History (Updated 05/29/25 @ 17:17 by Sudeep BRANDON, ROMA) Tinea pedis Social History (Updated 05/29/25 @ 16:16 by Vicki Adams MA) Smoking Status: Never smoker alcohol intake: never HPI HPI Details: JOE AC, is a 29 M who presents to the office today for several day history of bilateral pruritic skin between toes with skin peeling and fissuring appreciated by patient. Unknown ideology as patient has never had such symptomsin the past he so states. No [id number] topical products been tried to assist. No other associated symptoms and no other alleviating/aggravating factors. ROS Const Constitutional: No other (As above) Exam Const General: cooperative, healthy appearing and no acute distress Nutritional Appearance: average body habitus Orientation: alert and awake Resp Effort & Inspection: normal respiratory effort and able to speak in complete sentences Cardio Rate: regular rate Pulses: radial pulses present Skin General: no rashes or lesions noted Other: Except skin peeling and fissuring between several toes of both feet Neuro General: patient alert and patient awake Cognition: normal cognition Speech: speech normal Extrem General: normal to inspection (Except as described in skin exam above) Psych Appearance: grossly normal Mental Status: mental status grossly normal Mood: congruent mood Affect: normal affect Speech and Movement: speech and movement normal Attitude: cooperative Coding Level of Care Code Off vis,new,level 3 Diagnoses Tinea pedis B35.3 Assessment and Plan Assessment and Plan (1) Tinea pedis: Status: Acute Plan: Clotrimazole/betamethasone cream as prescribed today. Appropriate skin care measures as instructed today. Follow-up with PCP or podiatry or dermatology in 10 to 14 days should symptoms not improve, sooner should symptoms only worsen or any other concerns develop. 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 This note was generated with [employer] dictation software. It may contain incorrectwords, spelling, and punctuation that were not noted in checking the note beforesigning. Medications: New clotrimazole-betamethasone 1-0.05 % 1 applic topical BID 45 grams 0RF 4 weeks Discontinued oxycodone-acetaminophen 10-325 mg (Percocet) Discontinued Reason: Pt no longer taking 1 TAB PO Q4H PRN PRN 30 tabs 0RF Pain sulfamethoxazole-trimethoprim 800-160 mg Discontinued Reason: Pt no longer taking 1 TAB PO BID 14 TABLETS 0RF benzocaine-menthol 15-2.6 mg (Cepacol Sore Throat (benzocaine-menthol)) Discontinued Reason: Pt no longer taking 1 ea MM Q2H PRN PRN 30 matt 0RF Sore Throat acetaminophen Discontinued Reason: Pt no longer taking 500 - 1,000 mg (1 - 2 x 500 mg) PO Q6H PRN PRN 60 tabs Pain Or Fever 05/29/25 1718 <Electronically signed by Sudeep BRANDON> Date _ Sudeep BRANDON Cosigner Signature: Date (if applicable) CC: ~ [employer] Work Phone: [phone] Telephone encounter Note* Telephone Encounter - Rick Strickland RN - 03/15/2025 1:55 PM EDT The patient has been identified by name and date of : Yes Caregiver verified no other encounters exist for this prescription request: Yes Caregiver confirmed with patient/requestor that no other refills are due, in the near future, with this provider at this time: Yes The last office visit in the department: 10/15/2023. [facility] with Jilliannorma on 12/27/24 Does the patient have a future office visit with this provider/department: No Visit date not found Requested Prescriptions Pending Prescriptions Disp Refills acetaminophen (TYLENOL) 325 mg tablet 60 tablet 1 Sig: Take 2 tablets by mouth every 6 hours as needed for pain. and headache Rick Strickland RN March 15, 2025 1:55 PM [facility]07-23-2025 Miscellaneous Notes* Telephone Encounter - Rick Strickland RN - 03/15/2025 1:55 PM EDT The patient has been identified by name and date of : Yes Caregiver verified no other encounters exist for this prescription request: Yes Caregiver confirmed with patient/requestor that no other refills are due, in the near future, with this provider at this time: Yes The last office visit in the department: 10/15/2023. Appt to [facility] with Nat on 12/27/24 Does the patient have a future office visit with this provider/department: No Visit date not found Requested Prescriptions Pending Prescriptions Disp Refills acetaminophen (TYLENOL) 325 mg tablet 60 tablet 1 Sig: Take 2 tablets by mouth every 6 hours as needed for pain. and headache Rick Strickland RN March 15, 2025 1:55 PM [facility] Instructions* Patient Instructions* Stephen Johns DO - 12/27/2024 3:25 PM EDT Continue to take all medication as prescribed,. Keep up coming appointment with Psychiatry Continue to eat well balanced diet and stay active Due for eye and dental exam this year Get tetanus vaccine at pharmacy like [facility] documented in [facility] NoteHNO ID: [id number] Author: STEPHEN JOHNS DO Service: ? Author Type: Physician Type: Progress Notes Filed: 12/27/2024 15:40 Note Text: ASSESSMENT AND PLAN: Problem List Items Addressed This Visit None Visit Diagnoses Encounter for well adult exam without abnormal findings - Primary Screening for depression Relevant Orders DEPRESSION SCREENING Encounter for screening examination for other mental health and behavioral disorders Relevant Orders ANXIETY SCREENING Special screening examination for viral disease Relevant Orders HEPATITIS C ANTIBODY IA WITH CONFIRMATION Encounter for immunization Relevant Orders TDAP PRINTED PHARMACY INSTRUCTIONS Screening for diabetes mellitus Relevant Orders COMPREHENSIVE METABOLIC PANEL HEMOGLOBIN A1C Screening for lipid disorders Relevant Orders LIPID PANEL, FASTING Screening for endocrine disorder Relevant Orders COMPLETE BLOOD COUNT TSH W/REFLEX FT4 Discussed BP goal <130/80. Encouraged diet rich in vegetables and 150 minutes of moderate intensity activity weekly. Encouraged regular dental visits. Encouraged regular seatbelt use. Encouraged safe sex practices. Reviewed age and season appropriate vaccines. Reviewed cancer screening recommendations. Questions and concerns addressed in office. Medications were reviewed and verified. AVS provided. 10/15/2023 12/27/2024 INTAKE PAIN ASSESSMENT Are you having pain associated with your visit today? No No If pain assessment is 0, no action needed. If pain assessment is positive, please see assessment and plain. FOLLOW UP: Return in about 1 year (around 12/27/2025) for CPE. SUBJECTIVE: Joe Ac is a 29 year old male presenting in the office today. CC: Patient presents with: Establish Care: Pt presents today to establish care. Living in long-term in [place] with 2 roommates. Moving back to home town in [place] soon and will be living on his own. We are seeing [facility] who is managing medications. Mom has HTN Diet: generally healthy- eats fast food on weekends. Cooks at home and has staff who helps. Needs to work on vegetables-like peas, green peas. Likes apples. Does a lot of mountain dew, pops. Exercise: sometimes goes on walks and does yard work. Dental Exam: greater than a year ago Does not want to see dentist- had bad experience Eye Exam: annually- seeing one this week Seatbelt Use: regular Cancer Screening Colon: NA. No immediate family history of colon cancer. Normal Bms. Lung: NA. Not a smoker Prostate: NA. DEXA: NA. AA: NA. Immunization Influenza: NA Pneumococcal: NA SARS-CoV 2: Declined. Risks and benefits of vaccination discussed in office. Tdap/Td: Due. Patient to seek vaccination through local pharmacy. Zoster: NA PHYSICAL EXAMINATION: BP 130/82 Pulse 87 Temp 98.4 Resp 20 Ht 5' 8.75 (1.75m) Wt 190 lb 3.2 oz (86.3kg) SpO2 95% BMI 28.30 kg/(m2). Physical Exam Vitals reviewed. Constitutional: General: He is not in acute distress. Appearance: Normal appearance. HENT: Head: Normocephalic and atraumatic. Right Ear: Tympanic membrane, ear canal and external ear normal. There is no impacted cerumen. Left Ear: Tympanic membrane, ear canal and external ear normal. There is no impacted cerumen. Mouth/Throat: Mouth: Mucous membranes are moist. Pharynx: Oropharynx is clear. No oropharyngeal exudate or posterior oropharyngeal erythema. Comments: Poor oral dentition Eyes: Pupils: Pupils are equal, round, and reactive to light. Cardiovascular: Rate and Rhythm: Normal rate and regular rhythm. Heart sounds: Normal heart sounds. No murmur heard. Pulmonary: Effort: Pulmonary effort is normal. No respiratory distress. Breath sounds: Normal breath sounds. No wheezing. Lymphadenopathy: Cervical: No cervical adenopathy. Neurological: Mental Status: He is alert and oriented to person, place, and time. Psychiatric: Mood and Affect: Mood normal. Behavior: Behavior normal.[facility]05-06-2025 History of Present illness Narrative* Stephen Johns DO - 12/27/2024 3:12 PM EDT ASSESSMENT & PLAN: Problem List Items Addressed This Visit None Visit Diagnoses Encounter for well adult exam without abnormal findings - Primary Screening for depression Relevant Orders DEPRESSION SCREENING Encounter for screening examination for other mental health and behavioral disorders Relevant Orders ANXIETY SCREENING Special screening examination for viral disease Relevant Orders HEPATITIS C ANTIBODY IA WITH CONFIRMATION Encounter for immunization Relevant Orders TDAP PRINTED PHARMACY INSTRUCTIONS Screening for diabetes mellitus Relevant Orders COMPREHENSIVE METABOLIC PANEL HEMOGLOBIN A1C Screening for lipid disorders Relevant Orders LIPID PANEL, FASTING Screening for endocrine disorder Relevant Orders COMPLETE BLOOD COUNT TSH W/REFLEX FT4 Discussed BP goal <130/80. Encouraged diet rich in vegetables and 150 minutes of moderate intensity activity weekly. Encouraged regular dental visits. Encouraged regular seatbelt use. Encouraged safe sex practices. Reviewed age and season appropriate vaccines. Reviewed cancer screening recommendations. Questions and concerns addressed in office. Medications were reviewed and verified. AVS provided. 10/15/2023 12/27/2024 INTAKE PAIN ASSESSMENT Are you having pain associated with your visit today? No No If pain assessment is 0, no action needed. If pain assessment is positive, please see assessment and plain. FOLLOW UP: Return in about 1 year (around 12/27/2025) for CPE. SUBJECTIVE: Joe Ac is a 29 year old male presenting in the office today. CC: Patient presents with: Establish Care: Pt presents today to establish care. Living in long-term in [place] with 2 roommates. Moving back to home town in [place] soon and will be living on his own. We are seeing [facility] who is managing medications. Mom has HTN Diet: generally healthy- eats fast food on weekends. Cooks at home and has staff who helps. Needs to work on vegetables-like peas, green peas. Likes apples. Does a lot of mountain dew, pops. Exercise: sometimes goes on walks and does yard work. Dental Exam: greater than a year ago Does not want to see dentist- had bad experience Eye Exam: annually- seeing one this week Seatbelt Use: regular Cancer Screening Colon: NA. No immediate family history of colon cancer. Normal Bms. Lung: NA. Not a smoker Prostate: NA. DEXA: NA. AA: NA. Immunization Influenza: NA Pneumococcal: NA SARS-CoV 2: Declined. Risks and benefits of vaccination discussed in office. Tdap/Td: Due. Patient to seek vaccination through local pharmacy. Zoster: NA PHYSICAL EXAMINATION: BP 130/82 Pulse 87 Temp 98.4 Resp 20 Ht 5' 8.75 (1.75m) Wt 190 lb 3.2 oz (86.3kg) GsS157% BMI 28.30 kg/(m^2). Physical Exam Vitals reviewed. Constitutional: General: He is not in acute distress. Appearance: Normal appearance. HENT: Head: Normocephalic and atraumatic. Right Ear: Tympanic membrane, ear canal and external ear normal. There is no impacted cerumen. Left Ear: Tympanic membrane, ear canal and external ear normal. There is no impacted cerumen. Mouth/Throat: Mouth: Mucous membranes are moist. Pharynx: Oropharynx is clear. No oropharyngeal exudate or posterior oropharyngeal erythema. Comments: Poor oral dentition Eyes: Pupils: Pupils are equal, round, and reactive to light. Cardiovascular: Rate and Rhythm: Normal rate and regular rhythm. Heart sounds: Normal heart sounds. No murmur heard. Pulmonary: Effort: Pulmonary effort is normal. No respiratory distress. Breath sounds: Normal breath sounds. No wheezing. Lymphadenopathy: Cervical: No cervical adenopathy. Neurological: Mental Status: He is alert and oriented to person, place, and time. Psychiatric: Mood and Affect: Mood normal. Behavior: Behavior normal. [facility] Telephone encounter Note * Telephone Encounter - Janette Urena APRN.CNP - 08/08/2024 11:28 AM EST The following approved medication requests have been transmitted electronically. Requested Prescriptions Pending Prescriptions Disp Refills loratadine (CLARITIN) 10 mg tablet 31 tablet 11 Sig: Take 1 tablet by mouth once daily. Janette Urena APRN.CNP [facility]12-16-2024 Miscellaneous Notes* Telephone Encounter - Janette Urena APRN.CNP - 08/08/2024 11:28 AM EST The following approved medication requests have been transmitted electronically. Requested Prescriptions Pending Prescriptions Disp Refills loratadine (CLARITIN) 10 mg tablet 31 tablet 11 Sig: Take 1 tablet by mouth once daily. Janette Urena APRN.CNP * Telephone Encounter - Anel Beckford - 08/08/2024 10:15 AM EST .Prescription Refill Information The patient has been identified by name and date of : Yes Caregiver verified no other encounters exist for this prescription request: Yes Caregiver confirmed with patient/requestor that no other refills are due, in the near future, with this provider at this time: Yes The last office visit in the department: 09-25-23 Does the patient have a future office visit with this provider/department: Yes Requested Prescriptions Pending Prescriptions Disp Refills loratadine (CLARITIN) 10 mg tablet 31 tablet 11 Sig: Take 1 tablet by mouth once daily. Anel Ponce August 08, 2024 10:17 AM documented in this encounterM[facility]12[facility] Telephone encounter Note * Telephone Encounter - Anel Beckford - 08/08/2024 10:15 AM EST .Prescription Refill Information The patient has been identified by name and date of : Yes Caregiver verified no other encounters exist for this prescription request: Yes Caregiver confirmed with patient/requestor that no other refills are due, in the near future, with this provider at this time: Yes The last office visit in the department: 09-25-23 Does the patient have a future office visit with this provider/department: Yes Requested Prescriptions Pending Prescriptions Disp Refills loratadine (CLARITIN) 10 mg tablet 31 tablet 11 Sig: Take 1 tablet by mouth once daily. Anel Ponce August 08, 2024 10:17 AM [facility] Work Phone: [phone] Instructions* Patient Instructions* Shoshana Manzano APRN.CNP - 10/15/2023 2:36 PM EST Continue to take all medication as prescribed,. Keep up coming appointment with Psychiatry Continue to eat well balanced diet and stay active Due for eye and dental exam this year Follow up in 1 year or sooner as needed. Health Promotion: - Eat healthy -- go to [email or web address] to get started - Have a yearly physical - Get at least 30 minutes of physical activity daily - Get at least 7 to 8 hours of sleep each night - Reach and maintain a healthy weight - Get help to quit or don't start smoking - Limit alcohol use to one drink or less - Do not use illegal drugs or misuse prescription drugs - Wear a helmet when riding a bike and wear protective gear for sports - Wear a seatbelt in cars and not text and drive - Wear sunscreen documented in this encounterMarietta [facility]02-22-2024 History of Present illness Narrative* Shoshana Manzano APRN.CNP - 10/15/2023 2:20 PM EST This is a 28 year old male who presents today with: Patient presents with: Physical HISTORY OF PRESENT ILLNESS: Joe Ac is a 28 year old male. Patient presents with: Physical Here in the office for wellness exam, living in [place] now with a new custodial. Diet: Eating a well balanced diet. Exercise: Likes to stay busy, outdoor yard work, and walking. Vision: Due for Exam, wears glasses. Dental: Has not had cleanings in some time, had a bad incident. Sleep: Sleeping at least 8 hours per night. Mood: Feeling well. Pt brought today by new Caregiver, Armen. Going to a new day program at [facility] in [place]. GI/Uro - Denies any stomach, bowel or urinary issues. Psych - [facility]ie [facility]den[facility]. Due to moving will be seeing a new provider at [facility] in the future in [place]. On current medication regimen of Prozac 40 mg once daily, Risperdal 1 mg bid, Depakote 250 mg 1 tab po in the am and 2 pm and Seroquel 300 mg + 50 mg daily. Refers he feels well. Allergies: Takes Claritin and Flonase. Vaccines: Denies wanting any vaccines at this time. 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 acetaminophen (TYLENOL) 325 mg tablet Take 2 tablets by mouth every 6 hours as needed for pain. andheadache hydrOXYzine HCl (ATARAX) 25 mg tablet Take 1 tablet by mouth 1 hour prior to flight. dextroamphetamine-amphetamine (ADDERALL) 5 mg tablet Take 1 tablet by mouth once daily. FLUoxetine HCl (PROZAC) 40 mg capsule Take 1 capsule by mouth once daily. risperiDONE (RISPERDAL) 1 mg tablet Take 1 tablet by mouth twice daily. divalproex DR (DEPAKOTE) 250 mg EC tablet Take by mouth. Take one tablet in am and 2 tablets at bedtime. QUEtiapine (SEROQUEL) 300 mg tablet Take 300 mg by mouth daily at bedtime. QUEtiapine (SEROQUEL) 50 mg tablet Take 1 tablet by mouth twice daily. No current facility-administered medications for this visit. FAMILY HISTORY Problem Relation Age of Onset No Known Problems Sister Heart Maternal Grandmother Diabetes Maternal Grandmother Cancer Maternal Grandfather Diabetes Maternal Grandfather Heart Maternal Grandfather Social History Tobacco Use Smoking status: Never Smokeless tobacco: Never Tobacco comments: foster father smokes outside Vaping Use Vaping Use: Never used Substance Use Topics Alcohol use: No Drug use: No REVIEW OF SYSTEMS GENERAL: No weight loss, malaise or fevers/chills HEENT: Negative for frequent or significant headaches, No changes in hearing or vision. NECK: Negative for lumps, goiter, pain and significant neck swelling RESPIRATORY: Negative for cough, hemoptysis, wheezing, dyspnea or shortness of breath CARDIOVASCULAR: Negative for chest pain, leg swelling, orthopnea, or palpitations GI: No nausea, vomiting, or diarrhea/constipation. No hematochezia/melena. No heartburn or reflux symptoms. : No history of dysuria, frequency or incontinence MUSCULOSKELETAL: Negative for joint pain or swelling. SKIN: Negative for lesions, rash, and itching ENDOCRINE: Negative for cold or heat intolerance, polyuria, polydipsia and goiter NEURO: No history of headaches, syncope, paralysis, seizures or tremors MOOD: Negative for depression, anxiety, or suicidal ideation. EXAM: BP 130/86 Pulse 79 Resp 16 Ht 173.5 cm (5' 8.31) Wt 84.8 kg (187 lb) SpO2 97% BMI 28.18 kg/m PHYSICAL EXAM: General Appearance: Well appearing, alert, in no acute distress, well-hydrated, well nourished. Skin: Skin color, texture, turgor normal, no suspicious rashes or lesions. Head: Normocephalic, no masses, lesions, tenderness or abnormalities. Eyes: Anicteric sclera. Pupils are equally round and reactive to light. Extraocular movements are intact. Ears: External ears normal, canals clear. TMs pearly shcaffer. Neck: Supple, no adenopathy; thyroid symmetric, normal size, no bruits. Lungs: Lungs clear to auscultation. No wheezing, rhonchi, rales. Heart: RRR without murmur, gallop, or rubs. No ectopy. Abdomen: Normal abdominal exam, Abdomen soft, non-tender. Bowel sounds normal. No masses, organomegaly. Extremities: No deformities, edema, skin discoloration, clubbing or cyanosis. Good capillary refill. Musculoskeletal: No joint swelling, deformity, or tenderness. Peripheral Pulses: Normal, Capillary refill <2secs, strong peripheral pulses, Pulses palpable. Neurologic: Gait normal. Reflexes normal and symmetric. Sensation grossly intact. Mood: Pleasant, good eye contact, engaged. Component Latest Ref Rng & Units 08/01/2023 WBC 3.70 - 11.00 k/uL 6.50 RBC 4.20 - 6.00 m/uL 4.53 Hemoglobin 13.0 - 17.0 g/dL 14.0 Hematocrit 39.0 - 51.0 % 41.6 MCV 80.0 - 100.0 fL 91.8 MCH 26.0 - 34.0 pg 30.9 MCHC 30.5 - 36.0 g/dL 33.7 RDW-CV 11.5 - 15.0 % 11.9 Platelet Count 150 - 400 k/uL 201 MPV 9.0 - 12.7 fL 11.7 Neut% % 58.8 Abs Neut (ANC) 1.45 - 7.50 k/uL 3.82 Lymph% % 29.8 Abs Lymph 1.00 - 4.00 k/uL 1.94 [place]% % 7.5 Abs [place] <0.87 k/uL 0.49 Eosin% % 3.4 Abs Eosin <0.46 k/uL 0.22 Baso% % 0.5 Abs Baso <0.11 k/uL 0.03 Immature Gran % % 0.0 IMMATURE GRANS (ABS) <0.10 k/uL <0.03 DTYPE Auto Protein, Total 6.0 - 8.5 g/dL 7.1 Albumin 3.2 - 5.0 g/dL 4.1 Calcium 8.5 - 10.5 mg/dL 9.6 Bilirubin, Total 0.2 - 1.0 mg/dL 0.5 Alkaline Phosphatase 45 - 117 U/L 67 AST 8 - 34 U/L 16 ALT 13 - 61 U/L 16 Glucose 70 - 100 mg/dL 81 BUN 7 - 26 mg/dL 13 Creatinine 0.50 - 1.40 mg/dL 0.84 Sodium 136 - 145 mmol/L 140 Potassium 3.5 - 5.1 mmol/L 4.3 Chloride 98 - 107 mmol/L 108 (H) CO2 21 - 32 mmol/L 28 Anion Gap 5 - 16 mmol/L 4 (L) eGFR >=60 mL/min/1.73m 123 Cholesterol, Total 0 - 199 mg/dL 149 Triglyceride 30 - 149 mg/dL 93 HDL Cholesterol >40 mg/dL 42 Non HDL Cholesterol <130 mg/dL 107 Fasting Time hrs 12 VLDL Cholesterol <30 mg/dL 19 TC:HDL Ratio <5.10 3.55 LDL Cholesterol 0 - 129 mg/dL 88 LDL:HDL Ratio <2.54 2.10 Hemoglobin A1C 4.3 - 5.6 % 4.9 Estimated Average Glucose mg/dL 94 Valproic Acid 50.0 - 100.0 ug/mL 59.9 ASSESSMENT/PLAN: 1. Wellness examination - ICD9: V70.0, ICD10: Z00.00 (primary diagnosis) - Counseled on healthy diet and regular exercise - Depression screening tool completed and reviewed with patient. Based on score and interview, patient is at risk for depression and recommended continuing current plan of care. - Follow up for annual exam in one year 2. Developmental delay - ICD9: 783.40, ICD10: R62.50 - Stable 3. Attention deficit hyperactivity disorder (ADHD), unspecified ADHD type - ICD9: 314.01, ICD10: F90.9 - Stable, continue to take current medications. - Keep scheduled appointments with psychiatry. 4. Mixed hyperlipidemia - ICD9: 272.2, ICD10: E78.2 - Controlled - Counseled on healthy diet and regular exercise 5. Seasonal allergic rhinitis due to pollen - ICD9: 477.0, ICD10: J30.1 - Stable, continue with Claritin. Follow-up in 1 year or sooner as needed. Discussed treatment plan and patient voices understanding. Patient's questions answered appropriately. Medications and potential side effects were discussed and patient voices understanding. Shoshana Manzano APRN.RETAIL ADVERTISING EXECUTIVE This note was partially generated using [employer] voice recognition system. Note was reviewed for accuracy. There may be minor misspellings or grammar miscues with [employer] voice recognition. documented in this encounterMarietta [facility] Hospital02-08-2024 Miscellaneous Notes* Telephone Encounter - Mayra Veloz LPN - 10/01/2023 10:52 AM EST Copy of current encounter faxed to it disaster recovery manager. Mayra Veloz LPN * Telephone Encounter - Mayra Veloz LPN - 09/02/2023 9:04 AM EST Patient notified of results, verbalizes understanding of instructions. Seo Team Lead would like a copy of the encounter faxed to her. Mayra Veloz LPN * Telephone Encounter - Shoshana Manzano APRN.DANTE - 09/02/2023 6:59 AM EST Can you please call the residential instructor back and let him know that he can give the patient 1 beer to celebrate his birthday. Shoshana Manzano APRN.DANTE * Telephone Encounter - Ashley Soler RN - 2023 2:49 PM EST Armen, Electrical Prospecting Supervisor of pt's Penitentiary calling to ask if patient may have order to allow him to have one alcoholic beverage today for his birthday? Please call Armen at [phone] Thank you. documented in this encounterMarietta [facility] Hospital12-09-2023 History of Present illness Narrative* Jessie Russ LPN - 08/01/2023 12:30 PM EST Outpatient EKG performed on Pt. Pt tolerated procedure well. No further concerns. Jessie Russ LPN documented in this encounterMarietta [facility] Hospital11-27-2023 Miscellaneous Notes* Telephone Encounter - Janette Urena APRN.CNP - 07/20/2023 11:43 AM EST The following approved medication requests have been transmitted electronically. Requested Prescriptions Pending Prescriptions Disp Refills acetaminophen (TYLENOL) 325 mg tablet 60 tablet 1 Sig: Take 2 tablets by mouth every 6 hours as needed for pain. and headache Janette Urena APRN.DANTE * Telephone Encounter - Kelli Heredia MA - 07/20/2023 11:17 AM EST Patient has been identified by name and date of : Yes Requested Prescriptions Pending Prescriptions Disp Refills acetaminophen (TYLENOL) 325 mg tablet 60 tablet 1 Sig: Take 2 tablets by mouth every 6 hours as needed for pain. and headache RX INSTRUCTIONS: Patient aware RX will be sent to pharmacy. No need to notify patient. Kelli Heredia MA Jose Francisco 11/2022 No appointment scheduled Last refill: 01/2022 * Telephone Encounter - Berna Denton - 07/20/2023 11:11 AM EST Patient has been identified by name and date of : Yes Requested Prescriptions Pending Prescriptions Disp Refills acetaminophen (TYLENOL) 325 mg tablet 60 tablet 1 Sig: Take 2 tablets by mouth every 6 hours as needed for pain. and headache RX INSTRUCTIONS: Patient aware RX will be sent to pharmacy. No need to notify patient. Berna Denton documented in this encounterMarietta Memorial Hospital09-12-2023 Miscellaneous Notes* Telephone Encounter - Evangelina Whitehead LPN - 05/05/2023 3:29 PM EDT Phoned [facility] @ and spoke with pharmacist and gave verbal order to discontinue Azelastine effective today per Janette Urena CNP with Dr Torres's office. She updated patient's orders. * Telephone Encounter - Evangelina Whitehead LPN - 05/05/2023 3:19 PM EDT Spoke with Koki art manager and updated her with message. She voiced understanding and requests discontinuance be sent to [facility] so the medication won't continue to be sent. * Telephone Encounter - Janette Urena APRN.CNP - 05/05/2023 2:57 PM EDT Okay to stop azelastine. I removed from patient's medication list. Medication sent to pharmacy to take 1 hour prior to flying. The following approved medication requests have been transmitted electronically. Requested Prescriptions Signed Prescriptions Disp Refills hydrOXYzine HCl (ATARAX) 25 mg tablet 6 tablet 0 Sig: Take 1 tablet by mouth 1 hour prior to flight. Authorizing Provider: JANETTE URENA APRN.DANTE * Telephone Encounter - Winter Kaminski LPN - 05/04/2023 2:31 PM EDT Patient household worker Koki Gomez calling asking if patient could stop using his nasal spray, Azelastine? Patient does not like using it any longer. manager pmo Koki also asking for medication rx to relax patient, they are going on a trip 05/11 and coming back 05/18, taking a 2 and [address]. Patient has fear of heights and fearful of the flight coming up. [facility] for [facility] local pharmacy. Aware PCP is out of the office this week. Please advise documented in this encounterMarietta [facility] Hospital06-20-2023 Miscellaneous Notes* Telephone Encounter - Eunice Donald Ma - 02/10/2023 4:54 PM EDT Call to Koki, notified her okay per PCP to d/c. Note faxed to [facility] per PCP to d/c medication. Faxed to [phone]. Eunice Donald Ma * Telephone Encounter - Amena Torres MD - 02/10/2023 4:34 PM EDT OK to discontinue Flonase Amena Torres MD * Telephone Encounter - Valentina Magana Pss - 02/10/2023 11:59 AM EDT Joe Ac is a patient of Amena Torres MD today Koki, Caregiver is calling, she stated that the flonase medication was discontinued and a new nasal spray was prescribed. The flonase was notworking well. The [facility] told Koki they need our office to call and cancel the flonase prescription due to they keep sending it and this is a waste of medication. Patient has been identified by name and birthdate. Duration of symptoms: N/A Person calling: caregiver: Koki Call patient at: at home [phone] (home) Was an appointment scheduled: No Closing statement: Results or non-symptom based questions: Thank you for calling [facility], your call will be returned within the next business day. Valentina Magana Pss documented in this encounterMarietta [facility] Hospital05-16-2023 Miscellaneous Notes* Telephone Encounter - Amena Torres MD - 01/06/2023 4:04 PM EDT OK to refill as ordered Amena Torres MD * Telephone Encounter - Galina Corley Pss - 01/06/2023 3:23 PM EDT Patient has been identified by name and date of : Yes Requested Prescriptions Pending Prescriptions Disp Refills fluticasone (FLONASE) 50 mcg/actuation nasal spray 16 g 11 Sig: INSTILL 2 SPRAYS IN EACH NOSTRIL DAILY RINSE MOUTH AFTER USE *SHAKE GENTLY BEFORE USING* RX INSTRUCTIONS: Pharmacy initiated this request. No need to notify patient. Galina Jory Pss documented in this encounterMarietta Memorial Hospital05-11-2023 Miscellaneous Notes* Telephone Encounter - Gloria Nguyen RN - 01/01/2023 4:51 PM EDT Koki Jason household worker called and is notified of providers results and instructions. She voices understanding. Gloria Nguyen RN * Telephone Encounter - Amena Torres MD - 01/01/2023 4:43 PM EDT Please notify patient and caregiver that his cholesterol looks OK; total is 184, which is down [id number] four months ago. Recheck in 1 year as planned. Amena Torres MD documented in this encounterMarietta Memorial Hospital01-09-2023 Miscellaneous Notes* Telephone Encounter - Amena Torres MD - 09/01/2022 5:41 PM EST OK to refill as ordered Amena Torres MD * Telephone Encounter - Yajaira Erickson Ma - 09/01/2022 4:32 PM EST Last office visit: 12/04/21 F/u scheduled: none Yajaira Erickson Ma * Telephone Encounter - Galina Ponce - 09/01/2022 3:50 PM EST Patient has been identified by name and date of : Yes Requested Prescriptions Pending Prescriptions Disp Refills loratadine (CLARITIN) 10 mg tablet 31 tablet 11 Sig: Take 1 tablet by mouth once daily. RX INSTRUCTIONS: Pharmacy initiated this request. No need to notify patient. Galina Corley Pss documented in this encounterMarietta Memorial Hospital11-15-2022 Miscellaneous Notes* Telephone Encounter - Janette Urena APRN.CNP - 07/08/2022 11:44 AM EST Sig revised. The following approved medication requests have been transmitted electronically. Requested Prescriptions Signed Prescriptions Disp Refills acetaminophen (TYLENOL) 325 mg tablet 60 tablet 1 Sig: Take 2 tablets by mouth every 6 hours as needed for pain. and headache Authorizing Provider: JANETTE URENA APRN.CNP * Telephone Encounter - Winter Kaminski LPN - 07/08/2022 10:45 AM EST [facility] caregiver is asking for directions on Tylenol rx be changed to what was on previous rx. To be used for headache or pain as needed. Pending rx with changes made to file. Please advise Patient has been identified by name and date of : Yes Pharmacy phones for refill(s): Requested Prescriptions Pending Prescriptions Disp Refills acetaminophen (TYLENOL) 325 mg tablet 60 tablet 1 Sig: Take 2 tablets by mouth every 6 hours as needed for pain. and headache Date of last office visit in primary care: 12/04/2021 , no future appt scheduled Last 2 Encounter Wt Readings: Date: Wt: 12/04/2021 107.5 kg (237 lb) 11/30/2020 104.3 kg (230 lb) Previous labs/tests for medication: Not applicable Please advise. Thank you. Winter Kaminski LPN documented in this encounterMarietta Memorial Hospital11-15-2022 Miscellaneous Notes* Telephone Encounter - Janette Urena APRN.CNP - 07/08/2022 10:04 AM EST The following approved medication requests have been transmitted electronically. Requested Prescriptions Pending Prescriptions Disp Refills acetaminophen (TYLENOL) 325 mg tablet 60 tablet 1 Sig: Take 2 tablets by mouth every 6 hours as needed for fever (specify). Janette Urena APRN.CNP * Telephone Encounter - Maria Del Carmen Monzon - 07/08/2022 8:07 AM EST Patient has been identified by name and date of : Yes Requested Prescriptions Pending Prescriptions Disp Refills acetaminophen (TYLENOL) 325 mg tablet 60 tablet 1 Sig: Take 2 tablets by mouth every 6 hours as needed for fever (specify). RX INSTRUCTIONS: Patient aware RX will be sent to pharmacy. No need to notify patient. Maria Del Carmen Monzon documented in this encounterMarietta Memorial Hospital08-18-2022 Miscellaneous Notes* Telephone Encounter - Amena Torres MD - 04/10/2022 10:12 AM EDT Letter done and given to Koki, she was in with another client. Amena Torres MD * Telephone Encounter - Winter Kaminski LPN - 04/07/2022 10:06 AM EDT Caregiver Koki calling to check status of letter. She said needs to know who much alcohol and howoften patient can have alcohol. Letter needs faxed to [employer] at [phone]. Please advise * Telephone Encounter - Maxine Garza LPN - 03/31/2022 8:33 AM EDT Caregiver for pt, Koki Gomez with [employer] calling and states pt was given alcoholby guardian (grandmother). Koki states her employer requesting a letter be sent to pt letting them know if okay to have alcohol and amount because because of control medications pt takes. Please mail letter to pt's home. Maxine Garza LPN documented in this encounterMarietta Memorial Hospital05-11-2022 Miscellaneous Notes* Telephone Encounter - Yajaira Erickson Ma - 01/01/2022 12:34 PM EDT The following approved medication requests have been transmitted electronically. Signed Prescriptions Disp Refills fluticasone (FLONASE) 50 mcg/actuation nasal spray 16 g 11 Sig: INSTILL 2 SPRAYS IN EACH NOSTRIL DAILY RINSE MOUTH AFTER USE *SHAKE GENTLY BEFORE USING* CARLOS: No Authorizing Provider: AMENA TORRES Ma * Telephone Encounter - Amena Torres MD - 01/01/2022 12:22 PM EDT OK to refill as ordered Amena Torres MD * Telephone Encounter - Mohamud Baird LPN - 01/01/2022 12:10 PM EDT JOSE FRANCISCO 12/04/21 NOV no upcoming appt * Telephone Encounter - Emily Decker Pss - 01/01/2022 12:02 PM EDT Patient has been identified by name and date of : Yes Pending Prescriptions Disp Refills FLUTICASONE PROPIONATE 50 MCG/ACTUATION NASAL SPRAY,SUSPENSION 16 g 11 Sig: INSTILL 2 SPRAYS IN EACH NOSTRIL DAILY RINSE MOUTH AFTER USE *SHAKE GENTLY BEFORE USING* CARLOS: No RX INSTRUCTIONS: Patient aware RX will be sent to pharmacy. No need to notify patient. Emily Decker Pss documented in this encounterMarietta Memorial Hospital04-13-2022 History of Present illness Narrative* Amena Torres MD - 12/04/2021 12:00 PM EDT Chief Complaint Patient presents with: Physical HPI Joe Ac is a 26 year old male who presents here today for a Wellness Exam. Pt here today for a Wellness Exam. Pt last seen in office on 11/30/20. Caregiver was not in room during intake, she had to wait in the waiting room with the other client who also has appt. She did review his medications with me. [facility]. He is still working at [employer]. Doing well. Denies any chest pains, dizziness, or SOB. No bowel, Gi, or urinary issues. He has been trying to watch diet, trying to eat less. Does not like vegetables; lies hamburger. He is trying to exercise with walking when at work. Past medical history, appointments, medications, allergies reviewed. 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 PMH - PAST MEDICAL HISTORY OF developmental delay PMH - PAST MEDICAL HISTORY OF reflux as PMH - PAST MEDICAL HISTORY OF 2008 normal color vision PTSD (post-traumatic stress disorder) Previous Surgical History PAST SURGICAL HISTORY Procedure Laterality Date PAST SURGICAL HISTORY OF 1999 tubes in ears and Tand A PAST SURGICAL HISTORY OF 2009 Opening of Penis Family History FAMILY HISTORY Problem Relation Age of Onset No Known Problems Sister Heart Maternal Grandmother Diabetes Maternal Grandmother Cancer Maternal Grandfather Diabetes Maternal Grandfather Heart Maternal Grandfather Patient Allergies ALLERGIES Allergen Reactions Penicillins Hives rash Current Medications Current Outpatient Medications on File Prior to Visit Medication Sig loratadine (CLARITIN) 10 mg tablet Take 1 tablet by mouth once daily. fluticasone (FLONASE) 50 mcg/actuation nasal spray INSTILL 2 SPRAYS IN EACH NOSTRIL DAILY RINSE MOUTH AFTER USE *SHAKE GENTLY BEFORE USING* risperiDONE (RISPERDAL) 1 mg tablet Take 1 tablet by mouth twice daily. divalproex DR (DEPAKOTE) 250 mg EC tablet Take by mouth. Take one tablet in am and 2 tablets at bedtime. QUEtiapine (SEROQUEL) 300 mg tablet Take 300 mg by mouth daily at bedtime. QUEtiapine (SEROQUEL) 50 mg tablet Take 1 tablet by mouth twice daily. No current facility-administered medications on file prior to visit. Social History Social History Tobacco Use Smoking status: Never Smoker Smokeless tobacco: Never Used Tobacco comment: foster father smokes outside Vaping Use Vaping Use: Never used Substance Use Topics Alcohol use: No Drug use: No EXAM: BP 128/88 Pulse 78 Resp 18 Ht 172.7 cm (5' 8) Wt 107.5 kg (237 lb) BMI 36.04 kg/m General Appearance: Well appearing, alert, in no acute distress, well-hydrated, well nourished.. Neck: Supple, no adenopathy; thyroid symmetric, normal size, no bruits. Lungs: Lungs clear to auscultation. No wheezing, rhonchi, rales.. Heart: RRR without murmur, gallop, or rubs. No ectopy. Abdomen: Normal abdominal exam, Abdomen soft, non-tender. Bowel sounds normal. No masses, organomegaly. Health Maintenance List HEPATITIS C SCREENING Never done HIV SCREENING Never done HPV VACCINE(3 - Male 3-dose series) due on 08/28/2014 COVID-19 VACCINE(3 - Booster for Moderna series) due on 02/17/2021 DEPRESSION SCREENING due on 11/30/2021 INFLUENZA(Season Ended) due on 04/24/2022 DTAP,TDAP,TD(8 - Td or Tdap) due on 01/15/2025 MENINGOCOCCAL CONJUGATE Completed Data reviewed Results Only on 10/08/2021 Component Date Value TSH 10/08/2021 2.210 Results Only on 10/08/2021 Component Date Value Cholesterol, Total 10/08/2021 274 (A) Triglyceride 10/08/2021 313 (A) HDL Cholesterol 10/08/2021 32 (A) LDL Cholesterol 10/08/2021 179 (A) Non HDL Cholesterol 10/08/2021 242 (A) Fasting Time 10/08/2021 Unknown VLDL Cholesterol 10/08/2021 63 (A) TC:HDL Ratio 10/08/2021 8.56 (A) LDL:HDL Ratio 10/08/2021 5.59 (A) Results Only on 10/08/2021 Component Date Value Protein, Total 10/08/2021 7.6 Albumin 10/08/2021 4.6 Calcium 10/08/2021 9.6 Bilirubin, Total 10/08/2021 0.2 Alkaline Phosphatase 10/08/2021 93 AST 10/08/2021 29 Glucose 10/08/2021 79 BUN 10/08/2021 11 Creatinine 10/08/2021 0.93 Sodium 10/08/2021 138 Potassium 10/08/2021 4.4 Chloride 10/08/2021 99 CO2 10/08/2021 29 Anion Gap 10/08/2021 10 ALT 10/08/2021 38 eGFR- 10/08/2021 >60 eGFR-All Other Races 10/08/2021 >60 Results Only on 10/08/2021 Component Date Value Ammonia 10/08/2021 38 Results Only on 10/08/2021 Component Date Value Valproic Acid 10/08/2021 56.8 Results Only on 10/08/2021 Component Date Value WBC 10/08/2021 6.62 RBC 10/08/2021 5.00 Hemoglobin 10/08/2021 15.2 Hematocrit 10/08/2021 47.2 MCV 10/08/2021 94.4 MCH 10/08/2021 30.4 MCHC 10/08/2021 32.2 RDW-CV 10/08/2021 12.7 Platelet Count 10/08/2021 245 MPV 10/08/2021 11.8 Neut% 10/08/2021 55.4 Abs Neut (ANC) 10/08/2021 3.67 Lymph% 10/08/2021 34.1 Abs Lymph 10/08/2021 2.26 [place]% 10/08/2021 7.9 Abs [place] 10/08/2021 0.52 Eosin% 10/08/2021 2.0 Abs Eosin 10/08/2021 0.13 Baso% 10/08/2021 0.6 Abs Baso 10/08/2021 0.04 Nucleated Reds 10/08/2021 0.0 Absolute nRBC 10/08/2021 <0.01 Diff Type 10/08/2021 Auto Diff ASSESSMENT/PLAN: 1. Well adult exam - ICD9: V70.0, ICD10: Z00.00 (primary diagnosis) - Counseled on healthy diet and regular exercise - Discussed need for and benefit of weight loss. BMI 36.04 kg/(m^2) - Follow up for annual exam in one year 2. Developmental delay - ICD9: 783.40, ICD10: R62.50 3. Attention deficit hyperactivity disorder (ADHD), unspecified ADHD type - ICD9: 314.01, ICD10: F90.9 Continue current medications. Follow with Fredi Kohler 4. Mixed hyperlipidemia - ICD9: 272.2, ICD10: E78.2 - newly diagnosed - Encouraged eating more vegetables, less hamburger - Monitor Follow up in 1 year I agree with the Chief Complaint, ROS, and Past Histories independently gathered by the clinical family support worker and the remaining scribed note accurately describes my personal service to the patient. Amena Torres MD] The documentation for this note was completed by Yajaira Erickson Ma acting as scribe for Amena Torres MD. December 04, 2021 11:56 AM. 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 documented as of this encounter (statuses as of 12/04/2021) [facility] of [facility] illness Narrative* Problem Noted Date Resolved Date Folliculitis 06/17/2010 07/09/2011 Insect bites 06/17/2010 07/09/2011 Other seborrheic dermatitis 06/17/201006/24 Pruritus 06/17/2010 07/09/2011 Excoriation 06/17/2010 07/09/2011 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 documented as of this encounter (statuses as of 01/01/2022) [facility] of [facility] illness Narrative* Problem Noted Date Resolved Date Folliculitis 06/17/2010 07/09/2011 Insect bites 06/17/2010 07/09/2011 Other seborrheic dermatitis 06/17/201006/24 Pruritus 06/17/2010 07/09/2011 Excoriation 06/17/2010 07/09/2011 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 documented as of this encounter (statuses as of 04/10/2022) [facility] of [facility] illness Narrative* Problem Noted Date Resolved Date Folliculitis 06/17/2010 07/09/2011 Insect bites 06/17/2010 07/09/2011 Other seborrheic dermatitis 06/17/201006/24 Pruritus 06/17/2010 07/09/2011 Excoriation 06/17/2010 07/09/2011 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 documented as of this encounter (statuses as of 07/08/2022) [facility] of [facility] illness Narrative* Problem Noted Date Resolved Date Folliculitis 06/17/2010 07/09/2011 Insect bites 06/17/2010 07/09/2011 Other seborrheic dermatitis 06/17/201006/24 Pruritus 06/17/2010 07/09/2011 Excoriation 06/17/2010 07/09/2011 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 documented as of this encounter (statuses as of 07/08/2022) [facility] of [facility] illness Narrative* Problem Noted Date Resolved Date Folliculitis 06/17/2010 07/09/2011 Insect bites 06/17/2010 07/09/2011 Other seborrheic dermatitis 06/17/201006/24 Pruritus 06/17/2010 07/09/2011 Excoriation 06/17/2010 07/09/2011 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 documented as of this encounter (statuses as of 09/02/2022) [facility] Narrative* Problem Noted Date Resolved Date Folliculitis 06/17/2010 07/09/2011 Insect bites 06/17/2010 07/09/2011 Other seborrheic dermatitis 06/17/201006/24 Pruritus 06/17/2010 07/09/2011 Excoriation 06/17/2010 07/09/2011 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 documented as of this encounter (statuses as of 01/02/2023) [facility] Narrative* Problem Noted Date Resolved Date Folliculitis 06/17/2010 07/09/2011 Insect bites 06/17/2010 07/09/2011 Other seborrheic dermatitis 06/17/201006/24 Pruritus 06/17/2010 07/09/2011 Excoriation 06/17/2010 07/09/2011 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 documented as of this encounter (statuses as of 01/07/2023) [facility] Narrative* Problem Noted Date Resolved Date Folliculitis 06/17/2010 07/09/2011 Insect bites 06/17/2010 07/09/2011 Other seborrheic dermatitis 06/17/201006/24 Pruritus 06/17/2010 07/09/2011 Excoriation 06/17/2010 07/09/2011 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 documented as of this encounter (statuses as of 02/11/2023) [facility] Narrative* Problem Noted Date Diagnosed Date Resolved Date Folliculitis 06/17/2010 07/09/2011 Insect bites 06/17/2010 07/09/2011 Other seborrheic dermatitis 06/17/2010 07/09/2011 Pruritus 06/17/2010 07/09/2011 Excoriation 06/17/2010 07/09/2011 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 011 documented as of this encounter (statuses as of 05/06/2023) [facility] Narrative* Problem Noted Date Diagnosed Date Resolved Date Folliculitis 06/17/2010 07/09/2011 Insect bites 06/17/2010 07/09/2011 Other seborrheic dermatitis 06/17/2010 07/09/2011 Pruritus 06/17/2010 07/09/2011 Excoriation 06/17/2010 07/09/2011 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 011 documented as of this encounter (statuses as of 07/20/2023) [facility] Narrative* Problem Noted Date Diagnosed Date Resolved Date Folliculitis 06/17/2010 07/09/2011 Insect bites 06/17/2010 07/09/2011 Other seborrheic dermatitis 06/17/2010 07/09/2011 Pruritus 06/17/2010 07/09/2011 Excoriation 06/17/2010 07/09/2011 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 011 documented as of this encounter (statuses as of 08/01/2023) [facility] Narrative* Problem Noted Date Diagnosed Date Resolved Date Folliculitis 06/17/2010 07/09/2011 Insect bites 06/17/2010 07/09/2011 Other seborrheic dermatitis 06/17/2010 07/09/2011 Pruritus 06/17/2010 07/09/2011 Excoriation 06/17/2010 07/09/2011 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 011 documented as of this encounter (statuses as of 10/01/2023) [facility] Narrative* Problem Noted Date Diagnosed Date Resolved Date Folliculitis 06/17/2010 07/09/2011 Insect bites 06/17/2010 07/09/2011 Other seborrheic dermatitis 06/17/2010 07/09/2011 Pruritus 06/17/2010 07/09/2011 Excoriation 06/17/2010 07/09/2011 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 011 documented as of this encounter (statuses as of 10/15/2023) [facility] Diagnosis Well adult exam- Primary Routine general medical examination at a health care facility Developmental delay Lack of normal physiological development, unspecified Attention deficit hyperactivity disorder (ADHD), unspecified ADHD type Mixed hyperlipidemia documented in this encounter [facility]* Diagnosis Acute frontal sinusitis, recurrence not specified Acute serous otitis media of left ear, recurrence not specified [facility] Diagnosis Acute frontal sinusitis, recurrence not specified Acute serous otitis media of left ear, recurrence not specified documented in this encounter [facility]* Diagnosis Acute frontal sinusitis, recurrence not specified Acute serous otitis media of left ear, recurrence not specified [facility] Diagnosis Fear of flying- Primary Other isolated or specific phobias documented in this encounter [facility]* Diagnosis Acute frontal sinusitis, recurrence not specified Acute serous otitis media of left ear, recurrence not specified documented in this encounter [facility]* Diagnosis On angiotensin receptor blockers (ARB)- Primary Encounter for long-term (current) use of other medications Lethargic infant Other malaise and fatigue documented in this encounter [facility]* Diagnosis Wellness examination- Primary Developmental delay Lack of normal physiological development, unspecified Attention deficit hyperactivity disorder (ADHD), unspecified ADHD type Mixed hyperlipidemia Seasonal allergic rhinitis due to pollen documented in this encounter [facility]* Diagnosis Encounter for well adult exam without abnormal findings- Primary Screening for depression Encounter for screening examination for other mental health and behavioral disorders Special screening examination for viral disease Special screening examination for unspecified viral disease Encounter for immunization Need for other specified prophylactic vaccination against single bacterial disease Screening for diabetes mellitus Screening for lipid disorders Screening for endocrine disorder [facility] Diagnosis Acute frontal sinusitis, recurrence not specified Acute serous otitis media of left ear, recurrence not specified [facility] Diagnosis Onset Date Resolution Status Admit Date Tinea pedis acute May 29, 2025 4:12pm [employer] Work Phone: Reason for referral (narrative)* Outpatient Procedure (Routine) - Closed Specialty Diagnoses / Procedures Referred By Contac t [facility] Diagnoses On angiotensin receptor blockers (ARB) Lethargic Procedures ECG COMPLETE ECG ROUTINE ECG W/LEAST 12 LDS W/I&R Rossy Parra, [place].RETAIL ADVERTISING EXECUTIVE [id number] [facility] [place] [address] [place] [address] Referral ID Status Reason Start Date Expiration Date V isits Requested Visits Authorized [id number] Closed Auto-Generate d Referral 08/01/2023 07/31/2024 1 1 [facility]No reason for referral information availableSt. [facility] Work Phone: Reason for visit Narrative* Outpatient Procedure (Routine) - Closed Specialty Diagnoses / Procedures Referred By Anabelleac t Referred To Contact [facility] [place] Diagnoses On angiotensin receptor blockers (ARB) Lethargic Procedures ECG COMPLETE ECG ROUTINE ECG W/LEAST 12 LDS W/I&R Rossy Parra, CORRECTIONAL SUPPLY SUPERVISOR.RETAIL ADVERTISING EXECUTIVE [id number] [facility] [id number] [place] [address] Referral ID Status Reason Start Date Expiration Date V isits Requested Visits Authorized [id number] Closed Auto-Generate d Referral 08/01/2023 07/31/2024 1 1 [facility] Summary Purpose Family History No Family History Records FoundNo Family History Records FoundNo Family History Records FoundNo Family History Records FoundNo Family History Records Found Advance Directives No Advanced Directives Records FoundDocuments on File Type Date Recorded 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 Advance Directive(s) Advance Directive Response Recorded Date/ Time Advance Directives No February 23 3:01pm Chief Complaint and Reason for Visit Chief Complaint Admit Date ITCHY FEET May 29, 2025 4: 12pm Reason for Visit Admit Date Tinea pedis May 29, 2025 4: 12pm Additional Source Comments (unrecognized sect ion and content) No Status Records FoundNo Status Records FoundNo Status Records FoundNo Status Records FoundNo Status Records Found INFORMATION SOURCE (unrecogn ized section and content) DATE CREATED AUTHOR 08/12/2019 [facility] DATE CREATED AUTHOR AUTHOR'S ORGANIZ ATION 10/09/2021 [facility] DATE CREATED AUTHOR AUTHOR'S ORGANIZ ATION 12/30/2024 [facility] DATE CREATED AUTHOR AUTHOR'S ORGANIZ ATION 05/19/2025 [facility] [place] DATE CREATED AUTHOR AUTHOR'S ORGANIZ ATION 06/01/2025 [facility] Source Comments (unrecognize d section and content) In the event this informatio n is protected by the Federal Confidentiality of Alcohol and Drug Abuse Patient Records regulations: The Federal rules restrict any use of the information to criminally investigate or prosecute any alcohol or drug abuse patient.[facility] the event this information is protected by the Federal Confidentiality of Alcohol and Drug Abuse Patient Records regulations: The Federal rules restrict any use of the information to criminally investigate or prosecute any alcohol or drug abuse patient.[facility] the event this information is protected by the Federal Confidentiality of Alcohol and Drug Abuse Patient Records regulations: The Federal rules restrict any use of the information to criminally investigate or prosecute any alcohol or drug abuse patient.[facility] the event this information is protected by the Federal Confidentiality of Alcohol and Drug Abuse Patient Records regulations: The Federal rules restrict any use of the information to criminally investigate or prosecute any alcohol or drug abuse patient.[facility] the event this information is protected by the Federal Confidentiality of Alcohol and Drug Abuse Patient Records regulations: The Federal rules restrict any use of the information to criminally investigate or prosecute any alcohol or drug abuse patient.[facility] the event this information is protected by the Federal Confidentiality of Alcohol and Drug Abuse Patient Records regulations: The Federal rules restrict any use of the information to criminally investigate or prosecute any alcohol or drug abuse patient.[facility] the event this information is protected by the Federal Confidentiality of Alcohol and Drug Abuse Patient Records regulations: The Federal rules restrict any use of the information to criminally investigate or prosecute any alcohol or drug abuse patient.[facility] the event this information is protected by the Federal Confidentiality of Alcohol and Drug Abuse Patient Records regulations: The Federal rules restrict any use of the information to criminally investigate or prosecute any alcohol or drug abuse patient.[facility] HospitalIn the event this information is protected by the Federal Confidentiality of Alcohol and Drug Abuse Patient Records regulations: The Federal rules restrict any use of the information to criminally investigate or prosecute any alcohol or drug abuse patient.[facility] the event this information is protected by the Federal Confidentiality of Alcohol and Drug Abuse Patient Records regulations: The Federal rules restrict any use of the information to criminally investigate or prosecute any alcohol or drug abuse patient.[facility] the event this information is protected by the Federal Confidentiality of Alcohol and Drug Abuse Patient Records regulations: The Federal rules restrict any use of the information to criminally investigate or prosecute any alcohol or drug abuse patient.[facility] Hospital[facility] the event this information is protected by the Federal Confidentiality of Alcohol and Drug Abuse Patient Records regulations: The Federal rules restrict any use of the information to criminally investigate or prosecute any alcohol or drug abuse patient.[facility] HospitalIn the event this information is protected by the Federal Confidentiality of Alcohol and Drug Abuse Patient Records regulations: The Federal rules restrict any use of the information to criminally investigate or prosecute any alcohol or drug abuse patient.[facility] HospitalIn the event this information is protected by the Federal Confidentiality of Alcohol and Drug Abuse Patient Records regulations: The Federal rules restrict any use of the information to criminally investigate or prosecute any alcohol or drug abuse patient.[facility] Hospital[facility] the event this information is protected by the Federal Confidentiality of Alcohol and Drug Abuse Patient Records regulations: The Federal rules restrict any use of the information to criminally investigate or prosecute any alcohol or drug abuse patient.[facility] HospitalIn the event this information is protected by the Federal Confidentiality of Alcohol and Drug Abuse Patient Records regulations: The Federal rules restrict any use of the information to criminally investigate or prosecute any alcohol or drug abuse patient.[facility] Hospital[facility] the event this information is protected by the Federal Confidentiality of Alcohol and Drug Abuse Patient Records regulations: The Federal rules restrict any use of the information to criminally investigate or prosecute any alcohol or drug abuse patient.[facility] Hospital[facility] the event this information is protected by the Federal Confidentiality of Alcohol and Drug Abuse Patient Records regulations: The Federal rules restrict any use of the information to criminally investigate or prosecute any alcohol or drug abuse patient.[facility] Reason for Visit (unrecogniz ed section and content) Reason Comments Physical Reason Onset Date Comments Refill Request 01/01/2022 Reason Comments Letter Reason Onset Date Comments Refill Request 07/08/2022 Reason Comments Refill Request Reason Comments pharmacy asking for change in rx directi ons Reason Onset Date Comments Refill Request 09/01/2022 Reason Comments Results Reason Onset Date Comments Refill Request 01/06/2023 Reason Comments Medication Problem Changed nasal spray Reason Comments Patient Question Reason Onset Date Comments Refill Request 07/20/2023 Reason Comments Orders Reason Onset Date Comments Refill Request 08/08/2024 Reason Comments Establish Care Pt presents today to establish care. Reason Onset Date Comments Refill Request 03/15/2025 Care Teams (unrecognized sec tion and content) Drill Instructor Relationship Specialty Start Date End Date Amena Torres MD [address] [facility] [place] [address] PCP - General Family Practice 09/27/15 Drill Instructor Relationship Specialty Start Date End Date Amena Torres MD [address] [facility] [place] [address] PCP - General Family Practice 09/27/15 Drill Instructor Relationship Specialty Start Date End Date Amena Torres MD [address] [facility] [place] [address] PCP - General Family Practice 09/27/15 Drill Instructor Relationship Specialty Start Date End Date Aemna Torres MD [address] [facility] [place] [address] PCP - General Family Medicine 09/27/15 Drill Instructor Relationship Specialty Start Date End Date Amena Torres MD [address] [facility] [place] [address] PCP - General Family Medicine 09/27/15 Drill Instructor Relationship Specialty Start Date End Date Amena Torres MD [address] [facility] [place] [address] PCP - General Family Medicine 09/27/15 Drill Instructor Relationship Specialty Start Date End Date Amena Torres MD [address] [facility] [place] [address] PCP - General Family Medicine 09/27/15 Drill Instructor Relationship Specialty Start Date End Date Amena Torres MD [address] [place] [address] PCP - General Family Medicine 09/27/15 Drill Instructor Relationship Specialty Start Date End Date Amena Torres MD [address] [place] [address] PCP - General Family Medicine 09/27/15 Drill Instructor Relationship Specialty Start Date End Date Amena Torres MD [address] [place] [address] PCP - General Family Medicine 09/27/15 Drill Instructor Relationship Specialty Start Date End Date Amena Torres MD [address] [place] [address] PCP - General Family Medicine 09/27/15 Drill Instructor Relationship Specialty Start Date End Date Amena Torres MD [address] [place] [address] PCP - General Family Medicine 09/27/15 Drill Instructor Relationship Specialty Start Date End Date Amena Torres MD [address] [place] [address] PCP - General Family Medicine 09/27/15 Shoshana Manzano APRN.CNP [address] [place] [address] [employer] [facility] 07/31/24 Drill Instructor Relationship Specialty Start Date End Date Stephen Johns DO [address] [place] [id number] PCP - General Family Medicine 12/27/24 Shoshana Manzano APRN.RETAIL ADVERTISING EXECUTIVE [facility]24 Janette Urena APRN.RETAIL ADVERTISING EXECUTIVE [address] [place], [place] [address] [facility] 08/09/24 Drill Instructor Relationship Specialty Start Date End Date Stephen Johns DO [address] [place] [id number] PCP - General Family Medicine 12/27/24 Shoshana Manzano APRN.RETAIL ADVERTISING EXECUTIVE [facility] 07/31/24 Janette Urena APRN.RETAIL ADVERTISING EXECUTIVE [address] [place] [address] [facility] 08/09/24 Team Status: Active Member Role/Relationship Status Dates Dr. Amena Torres MD Primary care physician Active Team Status: Inactive Member Role/Relationship Status Dates Dr. Amena Torres MD Primary care physician Active Start: May 29, 2025 End: May 29, 2025 Dr. Amena Torres MD Referring Provider Active Start: May 29, 2025 End: May 29, 2025 Sudeep BRANDON, PA Attending physician Active Start: May 29, 2025 End: May 29, 2025 Goals (unrecognized section and content) Goals may be documented in a n alternate section FOR RECORDS PERTAINING TO PATIENTS WHO ARE OR HAVE BEEN ENROLLED IN A CHEMICAL DEPENDENCY/SUBSTANCEABUSE PROGRAM, SOME INFORMATION MAY BE OMITTED. This clinical summary was aggregated from multiple sources. Caution should be exercised in using it in the provision of clinical care. This summary normalizes information from multiple sources, and as a consequence, information in this document may materially change the coding, format and clinical context of patient data. In addition, data may be omitted in some cases. CLINICAL DECISIONS SHOULD BE BASED ON THE PRIMARY CLINICAL RECORDS. [facility] provides no warranty or guarantee of the accuracy or completeness of information in this document.
--- NOTE | 2025-06-10 03:12 | ED.RN ---
Attempted to call pt's listed legal guardian twice, unable to reach. Called a third time and left voicemail with call back number for unit.
== END 2025-06-10 03:17 | disposition home or self-care (01) ==
LOC: ED 03:06
PROVIDERS: Emergency Provider Emergency Medicine; PCP Family Medicine; Visit Provider Emergency Medicine
DX: R20.2 Paresthesia of skin (principal); F20.9 Schizophrenia, unspecified; F90.9 Attention-deficit hyperactivity disorder, unspecified type; R20.0 Anesthesia of skin
CPT/HCPCS: 99282